=== PATIENT | female | born 1940 | race Caucasian/White ===

== ENCOUNTER → 2016-08-07 | Outpatient (CLI) | payer MEDICARE ==
[~2016-08-07] MED LIST: /WARF25TA OR; ACET500C; ACET65TA OR; ARTISOL10; ASPI81TA83 OR; CALCCHW12; CEPACOL; CHLO5CA; CIPR250T3; COLA100C2; GLUC500T PO; IBUP600T; KLOR10TA PO; LASI40TA PO; MULTIVIT; NEUR100C; NEUR100C OR; OSTEO BIFLEX; PERC5TAB8 OR; TOPR50TA; TRAM100T; TRAM50TA2; VITAMIN D PO; VITAMIN D50000 UNT
[2016-08-07 11:04] LABS: BASO % 0.7 % (0.0-1.0); EOS # 0.1 K/mm3 (0.0-0.50); EOS % 1.8 % (0.0-3.0); MEAN CORPUSCULAR HEMOGLOBIN 32.5 pg (27.0-33.0); MEAN CORPUSCULAR HGB CONC 34.3 g/dl (32.0-36.5); MEAN CORPUSCULAR VOLUME 94.8 fl (80.0-96.0); MONO # 0.4 K/mm3 (0.0-0.8); MONO % 5.9 % (0.0-5.0); NEUTROPHILS % 72.9 % (36.0-66.0); WHITE BLOOD COUNT 6.9 K/mm3 (4.0-10.0)
[2016-08-07 12:12] LABS: ANION GAP 11 MEQ/L (8-16); BLOOD UREA NITROGEN 17 MG/DL (7-18); CALCIUM LEVEL 9.4 MG/DL (8.8-10.2); CARBON DIOXIDE LEVEL 25 MEQ/L (21-32); CHLORIDE LEVEL 103 MEQ/L (98-107); CREATININE FOR GFR 0.87 MG/DL (0.55-1.02); GLOMERULAR FILTRATION RATE > 60.0 (>39); GLUCOSE, FASTING 142 MG/DL (83-110); POTASSIUM SERUM 4.3 MEQ/L (3.5-5.1); SODIUM LEVEL 139 MEQ/L (136-145)
== END ==
LOC: M LAB 10:33
PROVIDERS: ATTEND Family Medicine
DX: F41.9 Anxiety disorder, unspecified (principal); G89.4 Chronic pain syndrome; M48.06 Spinal stenosis, lumbar region; Z79.899 Other long term (current) drug therapy

== ENCOUNTER → 2017-09-04 | Outpatient (CLI) | payer MEDICARE ==
[2017-09-04 11:45] LABS: BASO # 0.1 10^3/uL (0.0-0.2); BASO % 0.9 % (0.0-1.0); EOS # 0.2 10^3/uL (0.0-0.50); EOS % 2.2 % (0.0-3.0); HEMATOCRIT 42.1 % (36.0-47.0); HEMOGLOBIN 14.1 g/dl (12.0-16.0); IMMATURE GRANULOCYTE % 0.4 % (0-3.0); LYMPH # 1.6 10^3/uL (1.5-4.5); LYMPH % 19.4 % (24.0-44.0); MEAN CORPUSCULAR HEMOGLOBIN 32.2 pg (27.0-33.0); MEAN CORPUSCULAR HGB CONC 33.5 g/dl (32.0-36.5); MEAN CORPUSCULAR VOLUME 96.1 fl (80.0-96.0); MONO # 0.7 10^3/uL (0.0-0.8); MONO % 8.7 % (0.0-5.0); NEUTROPHILS # 5.5 10^3/uL (1.8-7.7); NEUTROPHILS % 68.4 % (36.0-66.0); PLATELET COUNT, AUTOMATED 200 10^3/uL (150-450); RED BLOOD COUNT 4.38 10^6/uL (4.00-5.40); RED CELL DISTRIBUTION WIDTH 13.8 % (11.5-14.5)
[2017-09-04 12:06] LABS: ESTIMATED AVERAGE GLUCOSE 131 MG/DL (60-110); HEMOGLOBIN A1c 6.2 %
[2017-09-04 12:18] LABS: ANION GAP 8 MEQ/L (8-16); BLOOD UREA NITROGEN 19 MG/DL (7-18); CALCIUM LEVEL 9.5 MG/DL (8.8-10.2); CARBON DIOXIDE LEVEL 28 MEQ/L (21-32); CHLORIDE LEVEL 105 MEQ/L (98-107); CREATININE FOR GFR 0.85 MG/DL (0.55-1.30); GLOMERULAR FILTRATION RATE > 60.0 (>39); GLUCOSE, FASTING 107 MG/DL (70-100); POTASSIUM SERUM 4.5 MEQ/L (3.5-5.1); SODIUM LEVEL 141 MEQ/L (136-145)
== END ==
LOC: M LAB 10:46
DX: G89.4 Chronic pain syndrome (principal); F41.9 Anxiety disorder, unspecified; G47.00 Insomnia, unspecified; R53.81 Other malaise; M48.061 Spinal stenosis, lumbar region without neurogenic claudication
CPT/HCPCS: 84443

== ENCOUNTER → 2018-01-22 | Outpatient (CLI) | payer MEDICARE ==
[2018-01-22 11:38] LABS: APPEARANCE, URINE CLEAR (CLEAR); BACTERIA, URINE AUTO 2+ (NEGATIVE); BILIRUBIN, URINE AUTO NEGATIVE (NEGATIVE); BLOOD, URINE BLOOD NEGATIVE (NEGATIVE); COLOR, URINE COLORLESS (YELLOW); GLUCOSE, URINE (UA) AUTO NEGATIVE (NEGATIVE); KETONE, URINE AUTO NEGATIVE (NEGATIVE); LEUKOCYTE ESTERASE, URINE AUTO NEGATIVE (NEGATIVE); NITRITE, URINE AUTO NEGATIVE (NEGATIVE); PROTEIN, URINE AUTO NEGATIVE (NEGATIVE); RBC, URINE AUTO 1 /HPF (0-3); SPECIFIC GRAVITY URINE AUTO 1.004 (1.002-1.035); SQUAMOUS EPITHELIAL CELL UR AU 0 /HPF (0-6); UROBILINOGEN, URINE AUTO 0.2 mg/dL (0.0-2.0); WBC, URINE AUTO 3 /HPF (0-3)
[2018-01-22 11:52] LABS: BASO # 0.1 10^3/uL (0.0-0.2); BASO % 0.7 % (0.0-1.0); EOS # 0.2 10^3/uL (0.0-0.50); EOS % 2.4 % (0.0-3.0); HEMATOCRIT 40.8 % (36.0-47.0); HEMOGLOBIN 13.5 g/dl (12.0-15.5); IMMATURE GRANULOCYTE # 0.1 10^3/uL (0-0); IMMATURE GRANULOCYTE % 0.8 % (0-3.0); LYMPH # 1.1 10^3/uL (1.5-4.5); LYMPH % 15.8 % (24.0-44.0); MEAN CORPUSCULAR HEMOGLOBIN 32.1 pg (27.0-33.0); MEAN CORPUSCULAR HGB CONC 33.1 g/dl (32.0-36.5); MEAN CORPUSCULAR VOLUME 96.9 fl (80.0-96.0); MONO # 0.6 10^3/uL (0.0-0.8); MONO % 7.9 % (0.0-5.0); NEUTROPHILS # 5.2 10^3/uL (1.8-7.7); NEUTROPHILS % 72.4 % (36.0-66.0); PLATELET COUNT, AUTOMATED 243 10^3/uL (150-450); RED BLOOD COUNT 4.21 10^6/uL (4.00-5.40); RED CELL DISTRIBUTION WIDTH 13.5 % (11.5-14.5); WHITE BLOOD COUNT 7.2 10^3/uL (4.0-10.0)
[2018-01-22 12:21] LABS: CREATININE, URINE < 13.0 MG/DL; MALB URINE SIEMENS < 5.0 MG/L
[2018-01-22 12:24] LABS: ALBUMIN/GLOBULIN RATIO 1.05 (1.00-1.93); ALKALINE PHOSPHATASE 74 U/L (45-117); ALT/SGPT 27 U/L (12-78); ANION GAP 8 MEQ/L (8-16); AST/SGOT 18 U/L (7-37); BILIRUBIN,TOTAL 0.4 MG/DL (0.2-1.0); BLOOD UREA NITROGEN 21 MG/DL (7-18); CALCIUM LEVEL 9.8 MG/DL (8.8-10.2); CARBON DIOXIDE LEVEL 28 MEQ/L (21-32); CHLORIDE LEVEL 105 MEQ/L (98-107); CHOLESTEROL LEVEL 258 MG/DL (<200); CHOLESTEROL RISK RATIO 5.375 (<5); GLOMERULAR FILTRATION RATE > 60.0 (>39); GLUCOSE, FASTING 120 MG/DL (70-100); HDL CHOLESTEROL 48 MG/DL (>40); NON-HDL-C 210 MG/DL; POTASSIUM SERUM 4.4 MEQ/L (3.5-5.1); SODIUM LEVEL 141 MEQ/L (136-145); TOTAL PROTEIN 7.8 GM/DL (6.4-8.2); TRIGLYCERIDES LEVEL 285 MG/DL (<150)
== END ==
LOC: M LAB 11:02
DX: F41.9 Anxiety disorder, unspecified (principal); M48.061 Spinal stenosis, lumbar region without neurogenic claudication; E11.9 Type 2 diabetes mellitus without complications; N18.2 Chronic kidney disease, stage 2 (mild); Z79.899 Other long term (current) drug therapy
CPT/HCPCS: 84443

== ENCOUNTER 2018-11-11 03:39 | Emergency (ER) | payer MEDICARE ==
[~2018-11-11] VITALS: Ht 157.5 cm; Wt 96.4 kg
[~2018-11-11 03:39] MED LIST changes: -/WARF25TA OR; +COUM1TAB18 OR; +METO-743; -TOPR50TA
[2018-11-11 03:46] VITALS: BP 179/81
[2018-11-11] MEDS ORDERED: LISI-1046 PO (04:07)
[2018-11-11] MEDS ORDERED: FOLGTAB5 PO (04:07)
[2018-11-11] MEDS ORDERED: OSTETAB2 PO (04:07)
[2018-11-11] MEDS ORDERED: DULO1CAP PO (04:07)
[2018-11-11] MEDS ORDERED: CALC-190 PO (04:07)
[2018-11-11] MEDS ORDERED: METAL LOCK LOOP XX ONE (04:14)
== END 2018-11-11 04:27 | disposition home or self-care (01) ==
LOC: M ED 03:39 → EDBD 03:39 → M ED 04:27
DX: Z04.3 Encounter for examination and observation following other accident (principal); W01.0XXA Fall on same level from slipping, tripping and stumbling without subsequent striking against object, initial encounter; Y92.013 Bedroom of single-family (private) house as the place of occurrence of the external cause; Y93.89 Activity, other specified; Y99.8 Other external cause status; I10 Essential (primary) hypertension; E11.9 Type 2 diabetes mellitus without complications; Z79.899 Other long term (current) drug therapy

== ENCOUNTER 2018-11-16 06:26 | Inpatient (IN) | payer MEDICARE ==
[~2018-11-16] VITALS: Ht 157.5 cm; Wt 96.4 kg
[~2018-11-16 06:26] MED LIST changes: +CALC-190 PO; +DULO1CAP PO; +FOLGTAB5 PO; +LISI-1046 PO; +OSTETAB2 PO
[2018-11-16] MEDS ORDERED: OSTEO BIFLEX PO SCH (09:00)
--- NOTE | 2018-11-16 09:38 | REP ---
MRI LUMBAR SPINE: TECHNIQUE: Multiple sequences obtained in the sagittal and axial planes. Comparison made with prior study 10/19/2017 at [facility]. There is no compression fracture. There is slight anterior listhesis of L3 on L4 and L4 on L5, with slight retrolisthesis of L5 on S1. These findings are stable. There is diffuse loss of water signal and disc degeneration with mild disc space narrowing at all levels. There is a more moderate degree of disc space narrowing at L5-S1. All of these findings are stable. The conus is unremarkable. At L1-2 there is mild diffuse disc bulging with hypertrophy of ligamentum flavum and articulating facets. There is minimal central canal stenosis. There is no neural foraminal narrowing. There is disc bulging at L2-3 with hypertrophy of the ligamentum flavum and posterior facets. There is severe spinal stenosis at this level. There is no neural foraminal narrowing. At L3-4 disc bulging is present with hypertrophy of ligamentum flavum and posterior facets. There is moderate spinal stenosis. There is no neural foraminal narrowing. At L4-5 there is diffuse disc bulging with a small right paracentral disc protrusion unchanged. There is hypertrophy of ligamentum flavum and posterior facets. There is mild spinal stenosis. There does appear to be neural foraminal narrowing at this level. At L5-S1 there is mild diffuse disc bulging with hypertrophy of the ligamentum flava in the posterior facets. There is very mild compression of the thecal sac. There is no neural foraminal narrowing. IMPRESSION: Multilevel disc bulging and hypertrophic change of ligamentum flavum and posterior facets. Severe spinal stenosis at L2-3 is unchanged. There is moderate spinal stenosis at L3-4. No acute findings. Electronically Signed by Kishan Harmon MD 11/16/2018 03:10 P
[2018-11-16 10:50] LABS: BASO # 0.1 10^3/uL (0.0-0.2); BASO % 1.1 % (0.0-1.0); EOS # 1.2 10^3/uL (0.0-0.50); EOS % 12.9 % (0.0-3.0); HEMATOCRIT 40.6 % (36.0-47.0); HEMOGLOBIN 13.5 g/dl (12.0-15.5); LYMPH # 1.1 10^3/uL (1.5-4.5); LYMPH % 12.7 % (24.0-44.0); MEAN CORPUSCULAR HEMOGLOBIN 32.4 pg (27.0-33.0); MEAN CORPUSCULAR HGB CONC 33.3 g/dl (32.0-36.5); MEAN CORPUSCULAR VOLUME 97.4 fl (80.0-96.0); MONO # 0.9 10^3/uL (0.0-0.8); NEUTROPHILS # 5.6 10^3/uL (1.8-7.7); PLATELET COUNT, AUTOMATED 215 10^3/uL (150-450); RED BLOOD COUNT 4.17 10^6/uL (4.00-5.40); WHITE BLOOD COUNT 8.9 10^3/uL (4.0-10.0)
[2018-11-16 11:07] LABS: BLOOD UREA NITROGEN 19 MG/DL (7-18); CALCIUM LEVEL 9.3 MG/DL (8.8-10.2); CARBON DIOXIDE LEVEL 29 MEQ/L (21-32); CHLORIDE LEVEL 108 MEQ/L (98-107); CREATININE FOR GFR 0.71 MG/DL (0.55-1.30); GLOMERULAR FILTRATION RATE > 60.0 (>39); GLUCOSE, FASTING 110 MG/DL (70-100); SODIUM LEVEL 140 MEQ/L (136-145)
[2018-11-16] MEDS ORDERED: GLUCOSE 4 GM CHEW TABLET PO PRN (14:00)
[2018-11-16] MEDS ORDERED: DEXTROSE 50% 50 ML SYRINGE IV PRN (14:00)
[2018-11-16] MEDS ORDERED: GLUCAGON FOR INJ 1 MG VIAL (J1610) SC PRN (14:00)
[2018-11-16] MEDS ORDERED: ASPIRIN 325 MG TAB PO ONE (14:00)
[2018-11-16] MEDS ORDERED: METOPROLOL SUCC (TopROL XL) 50MG **XL** TAB PO ONE (14:00)
[2018-11-16] MEDS ORDERED: ACETAMINOPHEN TAB 650MG DOSE (2X325MG) PO PRN (14:00)
[2018-11-16] MEDS ORDERED: MORPHINE 4 MG/ML 1ML VIAL/SYRINGE (J2270) IV PRN (14:15)
[2018-11-16] MEDS ORDERED: ONDANSETRON 4MG/2ML VIAL (J2405) IV PRN (14:15)
--- NOTE | 2018-11-16 14:34 | HPEPDOC ---
[facility] Medical History & Physical Date of Admission November 16, 2018 Attending Physician: AUBRIE GARCÍA MD History and Physical CHIEF COMPLAINT: Right leg weakness HISTORY OF PRESENT ILLNESS: Patient is a 78-year-old white female with past medical history of spinal stenosis with neuropathy, right hip pain, hyperlipidemia, OA, NIDD, osteoporosis, GERD and depression who presents to the emergency department via EMS after waking this morning at 0400 unable to move her right leg. Patient's weakness persisted upon presentation. She denied any bowel or bladder incontinence did not demonstrate any left-sided weakness. In the emergency department, an MRI of the patient's lumbosacral spine was ordered and indicated severe spinal stenosis. A CBC and CMP were performed and did not demonstrated any serious abnormalities. Both orthopedics and hospitalist team were consulted for further evaluation and management. Of historical note, patient originally presented to the emergency department on 11/11/18 after a fall onto her home hospital bed from standing height. At that time, patient denied any trauma and was unable to identify the mechanism of her fall, although she maintains she never lost consciousness. Patient was discharged home with primary follow-up. PAST MEDICAL HISTORY: -Spinal stenosis with neuropathy -Chronic right hip pain -Hyperlipidemia -Hypertension -Gastroesophageal reflux disease -Generalized arthritis -Osteoporosis -Xeb-[id number] diabetes mellitus -Depression -Overactive bladder -Hypokalemia PAST SURGICAL HISTORY: -Total left knee replacement, 2011 -Spinal canal surgery, 2009 -Total left hip replacement, 2002 -Appendectomy -Left knee arthroscopy -Right heel spur excision -D&C 3 -Hysterectomy -Breast biopsy SOCIAL HISTORY: Marital status: to Lauro Padron , 59 years Children: Son, Aditya Padron Resides in: Alone home with Tobacco use: Patient denies tobacco/nicotine abuse ETOH: Patient denies alcohol use Illicit drug use: Patient denies illicit drug use IV drug use: Denies IV drug use Other relevant social factors: Patient utilizes bifocal glasses and a walker to ambulate at home FAMILY HISTORY: Family history of breast cancer Noncontributory given patient's advanced age ALLERGIES: Penicillin allergy Please see below REVIEW OF SYSTEMS: CONSTITUTIONAL: Denies recent fevers, chills, night sweats, changes in weight. HEENT: Denies headaches, changes in vision, ear pain, difficulty swallowing CARDIOVASCULAR: Denies chest pain/pressure, palpitations, inappropriately elevated heart rate RESPIRATORY: Reports exertional dyspnea, no difficulty breathing or SOB with A DLs. No recent cough or wheeze. GASTROINTESTINAL: Denies n/v, abdominal pain, bowel incontinence or difficulty stooling. GENITOURINARY: Reports nocturia every 3-4 hours, denies urinary incontinence, no dysuria SKIN: Denies rashes or new/evolving skin lesions. MUSCULOSKELETAL: Reports R-leg weakness that began suddenly at 0400 this morning. Chronic R hip pain, chronic R knee pain. Denies UE joint pain or discomfort. NEUROLOGICAL: R-leg weakness, chronic neuropathic pain relating to spinal sue nosis. PSYCHIATRIC: Reports history of anxiety/depression HEMATOLOGIC/LYMPHATIC: denies history of easy bruising/bleeding. HOME MEDICATIONS: -Aspirin 81 mg daily -Calcium supplementation -Librium 5 mg by mouth twice a day -Vitamin D supplementation -Duloxetine 20 mg by mouth daily -Furosemide 20 mg by mouth every morning -Gabapentin 100 mg by mouth twice a day -Osteo Bi-Flex tablet by mouth daily -Lisinopril 2.5 mg by mouth every afternoon -Metformin 250 mg by mouth twice a day -Myrbetriq 25 mg by mouth daily at bedtime -Metoprolol succinate 12.5 mg by mouth daily -Multivitamin 1 tab by mouth daily -Potassium chloride 10 mEq by mouth daily PHYSICAL EXAMINATION: VITAL SIGNS: Temperature 98.6F oral, pulse 82 BPM, respiratory rate 16, blood pressure 132/62 (85), pulse oximetry 97 % on room air. GENERAL APPEARANCE: Alert, oriented, sitting upright in bed dressed in hospital gown. Appearing stated age and in no acute distress. HEENT: Normocephalic, atraumatic, EOMI, PERRLA, sclera nonicteric, membranes moist CARDIOVASCULAR: Regular rate and rhythm, normal S1 and S2 no murmurs appreciated LUNGS: Clear to auscultation bilaterally, free of adventitious breath sounds, even and unlabored breathing ABDOMEN: obese, soft, nontender, protuberant, bowel sounds throughout MUSCULOSKELETAL: Right hip is nontender. No tenderness overlying right trochanter. Right hip active range of motion limited in flexion and extension due to weakness. Passive range of motion limited in flexion, external rotation and abduction secondary to pain. Overlying dermatomes are intact bilaterally. No difficulty with right knee or right ankle range of motion. Distal pulses 2+ bilaterally. No calf tenderness bilaterally, no lower extremity edema. NEUROLOGICAL: Right hip flexion 1/5 strength, PSYCHIATRIC: Mood and affect are appropriate LABORATORY DATA: See below. IMAGING: Lumbar spine MRI (11/16/18): Multilevel disc bulging and hypertrophic change of ligamentum flavum and posterior facets. Severe spinal stenosis at L2-L3 is unchanged. There is moderate spinal stenosis at L3-4. No acute findings. Right Knee x-ray (11/16/18): Pending radiology read, severe arthritis evident Right hip x-ray (11/16/18): Pending radiology read, severe arthritis evident ASSESSMENT: Patient is a 78-year-old white female with past medical history of severe spinal stenosis with neuropathy, right hip pain, hyperlipidemia, OA, NIDD, osteoporosis, GERD and depression who presented to the emergency department via EMS after waking the morning of 11/16/18 at 0400 unable to move her right leg. Imaging studies revealed the patient to have sever spinal stenosis. Hospitalist team, in addition to orthopedics, were consulted for admission and further evaluation and management. PLAN: Right leg weakness likely 2/2 to spinal stenosis -Likely secondary to patient's ongoing severe spinal stenosis, denies bowel or bladder incontinence -No evidence of myelopathy -Orthopedics was consulted and does not feel surgical management required at this time. We appreciate their continued assistance in the management of Mrs. Padron. -B12 and folate pending to rule out alternate neuropathic causes of weakness -Continue home medications for neuropathy: gabapentin and duloxetine -ARU screen, pending admission -PT/OT evaluation for inability to ambulate -Plan to consult pain management on 11/18/18, with potential for further intervention with steroid injections or epidural. Patient's home aspirin dose held in the event the aforementioned procedures are required. Right Hip Pain -Right hip x-ray demonstrates severe osteoarthritis -IV morphine 2 mg every 4 hours when necessary -By mouth Tylenol 650 mg every 4 hours when necessary -Orthopedics consulted and we appreciate their assistance in management of this patient Diabetes Mellitus, non-insulin dependent -Sliding scale insulin -Consistent carb diet -A1c pending Hypertension -Continue home metoprolol, furosemide, lisinopril Hyperlipidemia -Cardiac risk profile pending Hypokalemia -Continue home supplementation Hypovitaminosis D -Continue home supplementation DVT Prophylaxis: Lovenox 40 mg Vital Signs Vital Signs Date Time Temp Pulse Resp B/P (MAP) Pulse Ox O2 Delivery O2 Flow Rate FiO2 11/16/18 06:35 97.9 87 16 153/71 (98) 97 Room Air Laboratory Data Labs 24H Laboratory Tests 2 11/16/18 10:14: Immature Granulocyte % (Auto) 0.3, White Blood Count 8.9, Red Blood Count 4.17, Hemoglobin 13.5, Hematocrit 40.6, Mean Corpuscular Volume 97.4H, Mean Corpuscular Hemoglobin 32.4, Mean Corpuscular Hemoglobin Concent 33.3, Red Cell Distribution Width 14.1, Platelet Count 215, Neutrophils (%) (Auto) 63.0, Lymphocytes (%) (Auto) 12.7L, Monocytes (%) (Auto) 10.0H, Eosinophils (%) (Auto) 12.9H, Basophils (%) (Auto) 1.1H, Neutrophils # (Auto) 5.6, Lymphocytes # (Auto) 1.1L, Monocytes # (Auto) 0.9H, Eosinophils # (Auto) 1.2H, Basophils # (Auto) 0.1, Nucleated Red Blood Cells % (auto) 0.0, Anion Gap 3L, Glomerular Filtration Rate > 60.0, Blood Urea Nitrogen 19H, Creatinine 0.71, Sodium Level 140, Potassium Level 4.0, Chloride Level 108H, Carbon Dioxide Level 29, Calcium Level 9.3 CBC/BMP Laboratory Tests 11/16/18 10:14 Red Blood Count 4.17, Mean Corpuscular Volume 97.4 H, Mean Corpuscular Hemoglobin 32.4, Mean Corpuscular Hemoglobin Concent 33.3, Red Cell Distribution Width 14.1, Neutrophils (%) (Auto) 63.0, Lymphocytes (%) (Auto) 12.7 L, Monocy chelsie (%) (Auto) 10.0 H, Eosinophils (%) (Auto) 12.9 H, Basophils (%) (Auto) 1.1 H, Neutrophils # (Auto) 5.6, Lymphocytes # (Auto) 1.1 L, Monocytes # (Auto) 0.9 H, Eosinophils # (Auto) 1.2 H, Basophils # (Auto) 0.1, Calcium Level 9.3 Home Medications Scheduled Aspirin (Aspir 81) 81 Mg Tablet.dr, 81 MG PO DAILY Calcium Carbonate/Vitamin D3 (Calcium 600-Vit D3 400 Tablet) 1 Each Tablet, 1 TAB PO DAILY Chlordiazepoxide (Chlordiazepoxide HCl) 5 Mg Capsule, 5 MG PO DAILY Cholecalciferol (Vitamin D3) (Vitamin D3) 1,000 Unit Tablet, 1,000 UNIT PO DAILY Duloxetine Hcl (Duloxetine HCl) 20 Mg Capsule.dr, 20 MG PO DAILY Furosemide (Furosemide) 20 Mg Tablet, 20 MG PO QAM Gabapentin (Gabapentin) 100 Mg Capsule, 100 MG PO BID TAKES AT 1500/2300 Glucosamine/D3/Boswellia Renita (Osteo Bi-Flex Tablet) 1 Each Tablet, 1 EACH PO DAILY Lisinopril (Lisinopril) 2.5 Mg Tablet, 2.5 MG PO QPM Metformin HCl (Metformin HCl) 500 Mg Tablet, 250 MG PO BID Metoprolol Succinate (Metoprolol Succinate) 25 Mg Tab.er.24h, 12.5 MG PO DAILY Mirabegron (Myrbetriq) 25 Mg Tab.er.24h, 25 MG PO QHS Multivit-Min/FA/Lycopen/Lutein (Centrum Silver Tablet) 1 Each Tablet, 1 TAB PO DAILY Potassium Chloride (Potassium Chloride) 10 Meq Tab.er.prt, 10 MEQ PO DAILY Scheduled PRN Chlordiazepoxide (Chlordiazepoxide HCl) 5 Mg Capsule, 5 MG PO BID PRN for ANXIETY Allergies Coded Allergies: Penicillins (Verified Allergy, Unknown, ALLERGY A CHILD, UNKOWN REACTION, 11/16/18) A-FIB/CHADSVASC A-FIB History Current/History of A-Fib/PAF?: No GME ATTESTATION GME ATTESTATION My faculty preceptor for this patient encounter was physically present during t he encounter and was fully available. All aspects of the patient interview, examination, medical decision making process, and medical care plan development were reviewed and approved by the faculty preceptor. The faculty preceptor is aware and concurs with the plan as stated in the body of this note and will attest to such by his/her cosignature. ALKA WALKER DO November 16, 2018 14:34
[2018-11-16] MEDS ORDERED: POTA10TA17 PO (14:53)
[2018-11-16] MEDS ORDERED: METO1TAB32 PO (14:53)
[2018-11-16] MEDS ORDERED: GLUC1TAB58 PO (14:53)
[2018-11-16] MEDS ORDERED: D31000TA PO (14:53)
[2018-11-16] MEDS ORDERED: ASPI81TA85 PO (14:53)
[2018-11-16] MEDS ORDERED: CENT1TAB PO (14:53)
[2018-11-16] MEDS ORDERED: FURO20TA2 PO (14:53)
[2018-11-16] MEDS ORDERED: CALC1TAB63 PO (14:53)
[2018-11-16] MEDS ORDERED: MYRB25TA PO (14:53)
[2018-11-16] MEDS ORDERED: LISI-1046 PO (14:53)
[2018-11-16] MEDS ORDERED: DULO1CAP PO (14:53)
[2018-11-16] MEDS ORDERED: GABA-1171 PO (14:53)
[2018-11-16] MEDS ORDERED: CHLOR5CA PO ×2 (14:53→14:54)
[2018-11-16] MEDS ORDERED: METF500T13 PO (14:53)
[2018-11-16] MEDS ORDERED: GABAPENTIN 100 MG CAP PO SCH (16:00)
[2018-11-16] MEDS: GABAPENTIN 100 MG CAP PO SCH ×2 (17:19→22:14)
[2018-11-16] MEDS: MULTIVITAMINS/MINERALS THERAP 1 TAB PO SCH (17:19)
[2018-11-16] MEDS: VITAMIN D 1,000 INTERNATIONAL UNITS TABLET PO SCH (17:19)
[2018-11-16] MEDS: POTASSIUM CHLORIDE 10 MEQ SR TABLET PO SCH (17:19)
[2018-11-16] MEDS: ENOXAPARIN 40 MG/0.4 ML SYRINGE (J1650) SC SCH (17:19)
[2018-11-16] MEDS: FUROSEMIDE 20 MG TAB PO SCH (17:20)
[2018-11-16] MEDS: CALCIUM/VITAMIN D 500 MG TAB PO SCH (17:20)
[2018-11-16] MEDS: DULoxetine 20 MG CAP (CYMBALTA) PO SCH (17:21)
[2018-11-16] MEDS: METOPROLOL SUCC *XL* 12.5MG PER 1/2 TAB (TopROL *XL*) PO SCH (17:21)
[2018-11-16] MEDS: HumaLOG INSULIN (NovoLOG) PER UNIT SC SCH ×2 (17:30→21:21)
[2018-11-16 17:54] VITALS: BP 133/63
[2018-11-16 20:00] VITALS: BP 159/70
[2018-11-16] MEDS ORDERED: POTASSIUM CHLORIDE 10 MEQ SR TABLET PO SCH (21:00)
[2018-11-16] MEDS: MYRBETRIQ 25 MG PO SCH (21:21)
[2018-11-16] MEDS: LISINOPRIL *2.5 MG* TAB PO SCH (21:21)
[2018-11-17 04:00] VITALS: BP 147/70
--- NOTE | 2018-11-17 06:37 | REP ---
RIGHT HIP, TWO VIEWS: Two views of the right hip are performed. There is severe joint space narrowing with erosive change diffusely of the acetabulum, and deepening of the acetabulum. There is extensive subchondral sclerosis and cystic change on both sides of the joint. There is moderate spurring at the margins of the joint. There is mild sclerosis at the pubic symphysis. IMPRESSION: Severe arthritic changes. Electronically Signed by Kishan Harmon MD 11/17/2018 11:24 A
--- NOTE | 2018-11-17 06:42 | REP ---
RIGHT KNEE, TWO VIEWS: AP and lateral views of the right knee are performed. There is no acute fracture or dislocation. There is moderate medial joint space narrowing with subchondral sclerosis. There is moderate diffuse spurring. There may be a small joint effusion. Vascular calcifications are seen posteriorly. IMPRESSION: Moderate degenerative changes. Electronically Signed by Kishan Harmon MD 11/17/2018 11:27 A
[2018-11-17] MEDS: HumaLOG INSULIN (NovoLOG) PER UNIT SC SCH ×4 (07:30→21:00)
[2018-11-17 08:14] LABS: HEMATOCRIT 40.5 % (36.0-47.0); HEMOGLOBIN 13.5 g/dl (12.0-15.5); MEAN CORPUSCULAR HEMOGLOBIN 32.8 pg (27.0-33.0); MEAN CORPUSCULAR HGB CONC 33.3 g/dl (32.0-36.5); MEAN CORPUSCULAR VOLUME 98.5 fl (80.0-96.0); PLATELET COUNT, AUTOMATED 186 10^3/uL (150-450); RED BLOOD COUNT 4.11 10^6/uL (4.00-5.40); WHITE BLOOD COUNT 8.3 10^3/uL (4.0-10.0)
[2018-11-17 08:49] LABS: BLOOD UREA NITROGEN 17 MG/DL (7-18); CALCIUM LEVEL 9.3 MG/DL (8.8-10.2); CARBON DIOXIDE LEVEL 28 MEQ/L (21-32); CHLORIDE LEVEL 105 MEQ/L (98-107); CHOLESTEROL LEVEL 240 MG/DL (<200); CHOLESTEROL RISK RATIO 5.333 (<5); CREATININE FOR GFR 0.76 MG/DL (0.55-1.30); GLOMERULAR FILTRATION RATE > 60.0 (>39); GLUCOSE, FASTING 106 MG/DL (70-100); HDL CHOLESTEROL 45 MG/DL (>40); LDL CHOLESTEROL 144 MG/DL (<100); MAGNESIUM LEVEL 1.9 MG/DL (1.8-2.4); NON-HDL-C 195 MG/DL; POTASSIUM SERUM 3.9 MEQ/L (3.5-5.1); SODIUM LEVEL 139 MEQ/L (136-145); TRIGLYCERIDES LEVEL 257 MG/DL (<150)
[2018-11-17] MEDS ORDERED: FUROSEMIDE 40 MG TAB PO SCH (09:00)
[2018-11-17] MEDS ORDERED: METOPROLOL SUCC (TopROL XL) 50MG **XL** TAB PO SCH (09:00)
[2018-11-17] MEDS ORDERED: MULTIVITAMINS/MINERALS THERAP 1 TAB PO SCH (09:00)
[2018-11-17] MEDS ORDERED: NON-FORMULARY 1 EA EA PO SCH ×3 (09:00)
[2018-11-17] MEDS: CHLORDIAZEPOXIDE 5 MG PO SCH ×2 (09:14→09:39)
[2018-11-17] MEDS: ENOXAPARIN 40 MG/0.4 ML SYRINGE (J1650) SC SCH (09:14)
[2018-11-17] MEDS: CALCIUM/VITAMIN D 500 MG TAB PO SCH (09:15)
[2018-11-17] MEDS: DULoxetine 20 MG CAP (CYMBALTA) PO SCH (09:15)
[2018-11-17] MEDS: METOPROLOL SUCC *XL* 12.5MG PER 1/2 TAB (TopROL *XL*) PO SCH (09:15)
[2018-11-17] MEDS: FUROSEMIDE 20 MG TAB PO SCH (09:15)
[2018-11-17] MEDS: VITAMIN D 1,000 INTERNATIONAL UNITS TABLET PO SCH (09:15)
[2018-11-17] MEDS: MULTIVITAMINS/MINERALS THERAP 1 TAB PO SCH (09:15)
[2018-11-17] MEDS: POTASSIUM CHLORIDE 10 MEQ SR TABLET PO SCH (09:16)
--- NOTE | 2018-11-17 10:32 | IPNPDOC ---
Date Seen The patient was seen on 11/17/18. Progress Note SUBJECTIVE: Pt is worried about the financial consequences of acute rehab. "I have my to help me at home. I just want to go home once the pain is better. We don't have that kind of money, and I don't want to lose my house." Pt was reassured that PFS has been consulted , and that the patient will have the final decision on disposition when medically stable. she continues to complain of right hip pain and radicular shooting pain in the right LE. no urinary retention. still with significant weakness in b/l LE. Yesterday, pt was evaluated by ortho, Dr. Matos, and after consultation with spine surgeon Dr. Mckeon, recommended pt to be seen by pain management and activity as tolerated. no acute surgical intervention was warranted, and clinically pt was stable to stay at [facility] as there was no signs of myelopathy on examination. PHYSICAL EXAMINATION: VITAL SIGNS: PLS SEE BELOW GENERAL APPEARANCE: Alert, oriented, sitting upright in bed dressed in hospital gown. Appearing stated age and in no acute distress. no use of accessory respiratory muscles HEENT: Normocephalic, atraumatic, EOMI, PERRLA, sclera nonicteric, membranes moist. no jaundice. no JVD CARDIOVASCULAR: Regular rate and rhythm, normal S1 and S2 no murmurs appreciated LUNGS: Clear to auscultation bilaterally,no wheezing, rales or rhonchi ABDOMEN: obese, soft, nontender, protuberant, bowel sounds x4 quadrants EXTREMITIES:limited exam in the right hip due to severe pain. SLR test b/l LE could not be performed due to patient's pain. motor fxn bl UE 11/17. diminished sensation in the right LE LABORATORY DATA, MICROBIOLOGY, IMAGING STUDIES: Pls See below. IMAGING: Lumbar spine MRI (11/16/18): Multilevel disc bulging and hypertrophic change of ligamentum flavum and posterior facets. Severe spinal stenosis at L2-L3 is unchanged. There is moderate spinal stenosis at L3-4. No acute findings. Right Knee x-ray (11/16/18): Pending radiology read, severe arthritis evident Right hip x-ray (11/16/18): Pending radiology read, severe arthritis evident ASSESSMENT/PLAN: Patient is a 78-year-old white female with past medical history of spinal stenosis with neuropathy, right hip pain, hyperlipidemia, OA, NIDD, osteopor osis, GERD and depression who presents to the emergency department via EMS after waking this morning at 0400 unable to move her right leg. Patient's weakness persisted upon presentation. She denied any bowel or bladder incontinence did not demonstrate any left-sided weakness.In the emergency department, an MRI of the patient's lumbosacral spine was ordered and indicated severe spinal stenosis.Both orthopedics and hospitalist team were consulted for further evaluation and management. , patient originally presented to the emergency department on 11/11/18 after a fall onto her home hospital bed from standing height. At that time, patient denied any trauma and was unable to identify the mechanism of her fall, although she maintains she never lost consciousness. Patient was discharged home with primary follow-up. SEVERE spinal stenosis L2-L3, with right LE weakness/ lumbar radiculopathy -denies bowel or bladder incontinence -No evidence of myelopathy -Orthopedics was consulted and does not feel surgical management required at this time. -B12 and folate pending to rule out alternate neuropathic causes of weakness -Continue home medications for neuropathy: gabapentin and duloxetine -ARU screen, pending admission -PT/OT evaluation for inability to ambulate -Plan to consult pain management on 11/18/18, with potential for further intervention with steroid injections or epidural. aspirin held Right Hip severe osteoarthritis -Right hip x-ray demonstrates severe osteoarthritis -IV morphine 2 mg every 4 hours when necessary -By mouth Tylenol 650 mg every 4 hours when necessary -Orthopedics recommended activity as tolerated. Diabetes Mellitus, non-insulin dependent -Sliding scale insulin -Consistent carb diet -A1c pending Hypertension -Continue home metoprolol, furosemide, lisinopril Hyperlipidemia -Cardiac risk profile pending Hypokalemia -Continue home supplementation Hypovitaminosis D -Continue home supplementation DVT Prophylaxis: Lovenox 40 mg A-FIB/CHADSVASC A-FIB History Current/History of A-Fib/PAF?: No Current Oral Anticoagulant The: No VS, I&O, 24H, Fishbone Vital Signs/I&O Vital Signs Date Time Temp Pulse Resp B/P (MAP) Pulse Ox O2 Delivery O2 Flow Rate FiO2 11/17/18 04:00 97.3 76 18 147/70 (95) 97 11/16/18 14:50 Room Air I&O- Last 24 Hours up to 6 AM 11/17/18 06:00 Intake Total 420 ml Output Total 950 ml Balance -530 ml Laboratory Data 24H LABS Laboratory Tests 2 11/16/18 10:14: Immature Granulocyte % (Auto) 0.3, White Blood Count 8.9, Red Blood Count 4.17, Hemoglobin 13.5, Hematocrit 40.6, Mean Corpuscular Volume 97.4H, Mean Corpuscular Hemoglobin 32.4, Mean Corpuscular Hemoglobin Concent 33.3, Red Cell Distribution Width 14.1, Platelet Count 215, Neutrophils (%) (Auto) 63.0, Lymphocytes (%) (Auto) 12.7L, Monocytes (%) (Auto) 10.0H, Eosinophils (%) (Auto) 12.9H, Basophils (%) (Auto) 1.1H, Neutrophils # (Auto) 5.6, Lymphocytes # (Auto) 1.1L, Monocytes # (Auto) 0.9H, Eosinophils # (Auto) 1.2H, Basophils # (Auto) 0.1, Nucleated Red Blood Cells % (auto) 0.0, Anion Gap 3L, Glomerular Filtration Rate > 60.0, Blood Urea Nitrogen 19H, Creatinine 0.71, Sodium Level 140, Potassium Level 4.0, Chloride Level 108H, Carbon Dioxide Level 29, Calcium Level 9.3 11/16/18 18:47: Bedside Glucose (Misc Panel) 147H 11/16/18 20:57: Bedside Glucose (Misc Panel) 111H 11/17/18 02:08: Urine Color YELLOW, Urine Appearance CLEAR, Urine pH 5.0, Urine Specific [place] 1.009, Urine Protein NEGATIVE, Urine Glucose (UA) NEGATIVE, Urine Ketones NEGATIVE, Urine Blood NEGATIVE, Urine Nitrite NEGATIVE, Urine Bilirubin NEGATIVE, Urine Urobilinogen 0.2, Urine Leukocyte Esterase NEGATIVE, Urine WBC (Auto) 1, Urine RBC (Auto) 0, Urine Hyaline Casts (Auto) 0, Urine Bacteria (Auto) NEGATIVE, Urine Squamous Epithelial Cells 0, Urine Mucus (Auto) SMALL, Urine Sperm (Auto) CBC/BMP Laboratory Tests 11/16/18 10:14 Red Blood Count 4.17, Mean Corpuscular Volume 97.4 H, Mean Corpuscular Hemoglobin 32.4, Mean Corpuscular Hemoglobin Concent 33.3, Red Cell Distribution Width 14.1, Neutrophils (%) (Auto) 63.0, Lymphocytes (%) (Auto) 12.7 L, Monocytes (%) (Auto) 10.0 H, Eosinophils (%) (Auto) 12.9 H, Basophils (%) (Auto) 1.1 H, Neutrophils # (Auto) 5.6, Lymphocytes # (Auto) 1.1 L, Monocytes # (Auto) 0.9 H, Eosinophils # (Auto) 1.2 H, Basophils # (Auto) 0.1, Calcium Level 9.3 AUBRIE GARCÍA MD November 17, 2018 07:16
[2018-11-17 10:34] LABS: HEMOGLOBIN A1c 6.2 %
[2018-11-17 14:00] VITALS: BP 159/87
[2018-11-17 14:30] VITALS: BP 157/73
[2018-11-17] MEDS: GABAPENTIN 100 MG CAP PO SCH ×2 (15:30→23:30)
[2018-11-17] MEDS: LISINOPRIL *2.5 MG* TAB PO SCH (21:04)
[2018-11-17] MEDS: MYRBETRIQ 25 MG PO SCH (21:04)
--- NOTE | 2018-11-17 21:24 | HPE ---
DATE OF ADMISSION: 11/16/2018 CHIEF COMPLAINT: A 78-year-old female with right leg weakness HISTORY OF PRESENT ILLNESS: This 78-year-old female presented to emergency department at [facility]. She was assessed by the emergency room physician and consulted to myself as the orthopedic surgeon behavioral interventionist. Briefly, her history includes about nine years ago, she saw Dr. Mckeon, this the spine surgeon at [facility] ([facility] here in [place]. She apparently had multilevel decompression around L2, L3 and L4. She was having some leg symptoms at that point. She feels like she got back to normal; however, in the last 2-3 years, she is experiencing a slow decline in her ability to ambulate and motor function in her legs. She feels like over that time there has been some numbness in her feet as well. She evidently walks with a walker. She walks with "A senior shuffle," according to her. PAST MEDICAL HISTORY: 1. Hypertension. 2. Dyslipidemia. MEDICATIONS: She lives at totally unsure; however, her ambulatory medications state: - acetylsalicylic acid (ASA) 81 mg - calcium chlordiazepoxide 5 mg - duloxetine 20 mg by mouth once daily - Lasix 40 mg once daily - gabapentin 100 mg three times a day - glucosamine - lisinopril 2.5 mg by mouth once daily - metformin 500 mg by mouth twice a day - metoprolol 50 mg - multivitamin one tablet by mouth daily - potassium chloride - vitamin D3 - folic acid - vitamin D combination medication. ALLERGIES: Allergic reaction to PENICILLIN. SURGICAL HISTORY: 1. Left total hip 2002. 2. Lumbar spine decompression 2009, Dr. Mckeon. 3. Left total knee 2011. 4. Appendectomy. 5. Right breast biopsy. 6. Dilation and curettage (D C) times three. SOCIAL HISTORY: She lives at home with her . She is here today with him as well as her son. Denies alcohol, cigarette use or drug use. PHYSICAL EXAMINATION: VITAL SIGNS: Temperature 97.9, blood pressure 153/71, pulse rate 87, respiratory rate 16, 97% on room air. She is alert and oriented times three. Mood and affect pleasant and positive. Gait impossible to assess as she is unable to ambulate. She is laying supine in the bed. Inspection of her lumbar spine and lower extremities reveals no obvious overlying redness, swelling, ecchymosis or deformity. There is an anterior midline incision from the left toward mn that looks benign. Sensation in the lower extremities from L2-S1 appear normal, 2/2. Perianal sensation was less than normal. Normal rectal tone. Positive deep anal pressure. Lower extremity strength on the left side L2-S1 was 5/5. Right side hip flexor strength on 3/5. Hip flexion unable to do against gravity. Knee extension representing L3 was 4-/5. L4-S1 was 5/5. Reflexes in knees and ankles were unable to be elicited. Plantars were downgoing on both sides. No evidence of clonus in the lower extremities. Feet are warm and well perfused with good pedal pulses. Hip range of motion is stiff, zero to approximately 40 degrees of flexion before mechanical elisha appreciated. Imaging was performed, lumbar spine MRI. This is comparison to a prior study on 10/19/2017 at [facility] by the radiologist. There is slight anterolisthesis L3-L4 and L4-L5, a slight retrolisthesis at L5-S1 that are stable versus last MRI. The clonus is unremarkable. At L1-L2, there is mild diffuse disc bulging, minimal central canal stenosis and no neural foraminal narrowing. Disc bulge at L2-L3 at base, sliding more towards the right side with hypertrophy of the ligamentum flavum and posterior facets resulting in severe spinal stenosis at this level. No neural foraminal narrowing. At L3-4, diffuse disc bulge present with hypertrophy of ligamentum flavum and posterior facets resulting in moderate spinal stenosis with no neural foraminal narrowing. At L4-5, there is diffuse disc bulging with a small right paracentral disc protrusion unchanged. Mild to moderate stenosis. There does appear to be neural foraminal narrowing at this level. At L5-S1 there is mild diffuse disc bulging with hypertrophy of the ligamentum flavum in the posterior facets with mild compression of the thecal sac. There is no neural foraminal narrowing. ASSESSMENT AND PLAN: This 78-year-old female appears to have severe spinal stenosis in her lumbar spine, potentially resulting in some motor weakness of hip flexion and knee extension. I spoke to Dr. Mckeon about the case, as he is the spine surgeon here in [place] and had previously operated on this pleasant woman. He suggested admission to the hospitalist service under the hospitalist as well as pain control, treatment with steroids, pain service consult, as well as a hip and knee x-ray to assess the amount of arthritis of the right hip and right knee. In addition, we will review further images and will await further instructions from him as well. DYLAN
[2018-11-17 22:00] VITALS: BP 132/68
[2018-11-18 06:00] VITALS: BP 134/62
[2018-11-18 06:01] LABS: HEMATOCRIT 40.2 % (36.0-47.0); HEMOGLOBIN 13.2 g/dl (12.0-15.5); MEAN CORPUSCULAR HEMOGLOBIN 32.4 pg (27.0-33.0); MEAN CORPUSCULAR HGB CONC 32.8 g/dl (32.0-36.5); MEAN CORPUSCULAR VOLUME 98.5 fl (80.0-96.0); PLATELET COUNT, AUTOMATED 200 10^3/uL (150-450); RED BLOOD COUNT 4.08 10^6/uL (4.00-5.40); WHITE BLOOD COUNT 8.1 10^3/uL (4.0-10.0)
[2018-11-18 06:20] LABS: BLOOD UREA NITROGEN 23 MG/DL (7-18); CALCIUM LEVEL 9.2 MG/DL (8.8-10.2); CARBON DIOXIDE LEVEL 28 MEQ/L (21-32); CHLORIDE LEVEL 105 MEQ/L (98-107); CREATININE FOR GFR 0.86 MG/DL (0.55-1.30); GLOMERULAR FILTRATION RATE > 60.0 (>39); GLUCOSE, FASTING 112 MG/DL (70-100); POTASSIUM SERUM 3.7 MEQ/L (3.5-5.1); SODIUM LEVEL 138 MEQ/L (136-145)
[2018-11-18] MEDS ORDERED: POTASSIUM CHLORIDE 10 MEQ SR TABLET PO ONE (08:00)
[2018-11-18] MEDS: HumaLOG INSULIN (NovoLOG) PER UNIT SC SCH ×4 (08:34→21:00)
[2018-11-18] MEDS: DULoxetine 20 MG CAP (CYMBALTA) PO SCH (08:35)
[2018-11-18] MEDS: CALCIUM/VITAMIN D 500 MG TAB PO SCH (08:35)
[2018-11-18] MEDS: METOPROLOL SUCC *XL* 12.5MG PER 1/2 TAB (TopROL *XL*) PO SCH (08:35)
[2018-11-18] MEDS: VITAMIN D 1,000 INTERNATIONAL UNITS TABLET PO SCH (08:36)
[2018-11-18] MEDS: CHLORDIAZEPOXIDE 5 MG PO SCH (08:36)
[2018-11-18] MEDS: MULTIVITAMINS/MINERALS THERAP 1 TAB PO SCH (08:36)
[2018-11-18] MEDS: FUROSEMIDE 20 MG TAB PO SCH (08:36)
[2018-11-18] MEDS: ENOXAPARIN 40 MG/0.4 ML SYRINGE (J1650) SC SCH (08:36)
[2018-11-18] MEDS: POTASSIUM CHLORIDE 10 MEQ SR TABLET PO SCH (09:33)
[2018-11-18 10:26] LABS: TOTAL 25(OH) VITAMIN D 43.7 NG/ML (30.0-100.0)
[2018-11-18 10:40] LABS: VITAMIN B12 LEVEL 864 PG/ML (247-911)
[2018-11-18 10:47] LABS: FOLATE > 24.0 NG/ML (>5.4)
--- NOTE | 2018-11-18 11:05 | IPNPDOC ---
Text Note Date of Service The patient was seen on 11/18/18. NOTE SUBJECTIVE: Patient interviewed and examined this morning in her hospital room. She reports a comfortable vessel night sleep. She does not wish to be utilizing opioids for pain management as she says they've "really put her out". She reports improvement in her right hip pain. While she continues to have weakness in her right leg, patient has noted a relative improvement in her right leg's sensation, strength and range of motion. She denies any urinary retention or difficulty stooling. She continues to be fixated on financial ramifications of surgical intervention as it pertains to her right hip and right knee. PFS has been consulted. Pain management to be consulted this afternoon with the ultimate goal of improving patient's quality of life. PHYSICAL EXAMINATION: VITAL SIGNS: PLS SEE BELOW GENERAL APPEARANCE: Alert, oriented, sitting upright in bed dressed in hospital gown. Appearing stated age and in no acute distress. No use of accessory respiratory muscles HEENT: Normocephalic, atraumatic, EOMI, PERRLA, sclera nonicteric, membranes moist. no jaundice. no JVD CARDIOVASCULAR: Regular rate and rhythm, normal S1 and S2 no murmurs appreciated LUNGS: Clear to auscultation bilaterally,no wheezing, rales or rhonchi ABDOMEN: obese, soft, nontender, protuberant, bowel sounds x4 quadrants EXTREMITIES: limited exam in the right hip due to severe pain. SLR test performed bilaterally with pain experienced on the R with approximately 25 degrees of hip flexion. motor fxn bl UE 5/5. Sensation improved in R LE, although diminished compared to the L LE. No lower extremity edema or unilateral calf-swelling LABORATORY DATA, MICROBIOLOGY, IMAGING STUDIES: Please see below. IMAGING: Lumbar spine MRI (11/16/18): Multilevel disc bulging and hypertrophic change of ligamentum flavum and posterior facets. Severe spinal stenosis at L2-L3 is unchanged. There is moderate spinal stenosis at L3-4. No acute findings. Right Knee x-ray (11/16/18): Pending radiology read, severe arthritis evident Right hip x-ray (11/16/18): Pending radiology read, severe arthritis evident ASSESSMENT/PLAN: Patient is a 78-year-old white female with past medical history of spinal sten osis with neuropathy, right hip pain, hyperlipidemia, OA, NIDD, osteoporosis, GERD and depression who presents to the emergency department via EMS after waking this morning at 0400 unable to move her right leg. Patient's weakness persisted upon presentation. She denied any bowel or bladder incontinence did not demonstrate any left-sided weakness.In the emergency department, an MRI of the patient's lumbosacral spine was ordered and indicated severe spinal stenosis.Both orthopedics and hospitalist team were consulted for further evaluation and management. , patient originally presented to the emergency department on 11/11/18 after a fall onto her home hospital bed from standing height. At that time, patient denied any trauma and was unable to identify the mechanism of her fall, although she maintains she never lost consciousness. Patient was discharged home with primary follow-up. SEVERE spinal stenosis L2-L3, with right LE weakness/ lumbar radiculopathy -Denies bowel or bladder incontinence -No evidence of myelopathy. Orthopedics was consulted at the time of admission and does not feel surgical management required at this time. Recommends pain management consultation. -B12 and folate negative for abnormalities -Continue home medications for neuropathy: gabapentin and duloxetine -ARU screen despite patient indicating she does not wish to enter rehabilitation due to financial constraints -PT/OT evaluation for inability to ambulate -Pain management consulted with goal of improving patient's quality of life upon discharge. Right Hip severe osteoarthritis -Right hip x-ray demonstrates severe osteoarthritis -By mouth Tylenol 650 mg every 4 hours when necessary -Orthopedics recommended activity as tolerated. Plan to re-evaluate patient in out-patient setting for non-emergent surgical management. Diabetes Mellitus, non-insulin dependent -Sliding scale insulin -Consistent carb diet -A1c of 6.2 Hypertension - Pressures have remained controlled since admission -Continue home metoprolol, furosemide, lisinopril Hyperlipidemia -TAGs of 257, Cholesterol 240 and LDL of 144 -Consider starting statin therapy as an outpatient Hypokalemia -Continue home supplementation Hypovitaminosis D -Continue home supplementation DVT Prophylaxis: Lovenox 40 mg A-FIB/CHADSVASC A-FIB History Current/History of A-Fib/PAF?: No VS,Fishbone, I+O VS, Fishbone, I+O Laboratory Tests 11/18/18 05:38 Red Blood Count 4.08, Mean Corpuscular Volume 98.5 H, Mean Corpuscular Hemoglobin 32.4, Mean Corpuscular Hemoglobin Concent 32.8, Red Cell Distribution Width 14.0, Calcium Level 9.2 Vital Signs Date Time Temp Pulse Resp B/P (MAP) Pulse Ox O2 Delivery O2 Flow Rate FiO2 11/18/18 08:35 78 134/62 11/18/18 06:00 97.6 18 93 11/16/18 14:50 Room Air I&O- Last 24 Hours up to 6 AM 11/18/18 06:00 Intake Total 960 ml Output Total 750 ml Balance 210 ml ALKA WALKER DO November 18, 2018 11:05
[2018-11-18 14:00] VITALS: BP 133/60
[2018-11-18] MEDS: GABAPENTIN 100 MG CAP PO SCH ×2 (14:35→23:17)
--- NOTE | 2018-11-18 16:17 | CR ---
DATE OF CONSULTATION: 11/18/2018 CHIEF COMPLAINT: 1. Right low back pain. 2. Right hip pain. HISTORY OF PRESENT ILLNESS: Yael is a 78-year-old female who was admitted two days ago due to inability to move her right leg and ambulate. States that she was told that she needs right hip surgery and right knee surgery, and states that she is not going to have that and will be thinking about possibly in the future. Today I reviewed her MRI and discussed potential treatments at the pain clinic to include lumbar facet block and right sacroiliac joint injection. States that she is not interested in any procedures until she discusses with her family. Discussed the possibility of doing rehab. Patient adamantly is refusing to go into any rehab situation. States that she wants to go home and have the assistance of [facility] nursing and family. Son is in the room during our discussion. States she is doing better today with ambulating with assist of a walker. Currently not using any pain medications. PAST MEDICAL HISTORY: Spinal stenosis with neuropathy, chronic right hip pain, hyperlipidemia, hypertension, gastroesophageal reflux disease (GERD), generalized arthritis, osteoporosis, non-insulin dependent diabetes mellitus, depression, overactive bladder, hypokalemia. SURGICAL HISTORY: Left knee replacement 2011, spinal canal surgery 2009, total left hip replacement 2002, appendectomy, left knee arthroscopy, right heel spur excision, dilation and curettage (D and C) times three, hysterectomy and breast biopsy. SOCIAL HISTORY: Lives with her . Has a supportive family nearby. Denies tobacco or alcohol use. Denies illicit drug use. FAMILY HISTORY: Positive for breast cancer. ALLERGIES: PENICILLIN. REVIEW OF SYSTEM: 11-point review of systems is negative except as reported in the history of the present illness. PHYSICAL EXAMINATION: Awake, alert, pleasant. No acute distress. She demonstrates jerking motions in her lower extremities, which the patient states is chronic. Cardiac: S1, S2 normal rate and rhythm. Respiratory: Lung sounds are clear. Respirations nonlabored. Neurologic: Muscle strength testing is 3/5 bilaterally. Normal sensation to light touch lower extremities. Lumbosacral spine: Nontender over LS axis. Specific point tenderness over right SIJ. Nontender over lumbar paraspinals. Specific tenderness noted over right hip. No redness or swelling. Needed assistance to roll onto her side. DIAGNOSTIC DATA: MRI of the LS spine 11/16/2018 reviewed. ASSESSMENT: 1. Lumbosacral spinal stenosis with radiculopathy. 2. Sacroiliitis. PLAN: Discussed different treatment options. She would like to talk this over with her family. She does not seem to be inclined to want to pursue any procedures. States that she has had hip injections in the past and the last one was done not too long ago per patient and it did not work. Her plan is to go home with her family.
[2018-11-18] MEDS: LISINOPRIL *2.5 MG* TAB PO SCH (21:00)
[2018-11-18] MEDS: MYRBETRIQ 25 MG PO SCH (21:01)
[2018-11-18 22:00] VITALS: BP 138/63
[2018-11-19] MEDS: NYSTATIN 100,000 UNITS/GM TOPICAL PWD 15 GM TOP PRN (05:55)
[2018-11-19 07:15] LABS: HEMATOCRIT 42.7 % (36.0-47.0); MEAN CORPUSCULAR HEMOGLOBIN 32.3 pg (27.0-33.0); MEAN CORPUSCULAR HGB CONC 32.8 g/dl (32.0-36.5); MEAN CORPUSCULAR VOLUME 98.6 fl (80.0-96.0); PLATELET COUNT, AUTOMATED 227 10^3/uL (150-450); RED BLOOD COUNT 4.33 10^6/uL (4.00-5.40); WHITE BLOOD COUNT 9.1 10^3/uL (4.0-10.0)
[2018-11-19 07:35] LABS: BLOOD UREA NITROGEN 20 MG/DL (7-18); CALCIUM LEVEL 9.5 MG/DL (8.8-10.2); CARBON DIOXIDE LEVEL 28 MEQ/L (21-32); CHLORIDE LEVEL 104 MEQ/L (98-107); CREATININE FOR GFR 0.82 MG/DL (0.55-1.30); GLOMERULAR FILTRATION RATE > 60.0 (>39); GLUCOSE, FASTING 113 MG/DL (70-100); POTASSIUM SERUM 4.1 MEQ/L (3.5-5.1); SODIUM LEVEL 138 MEQ/L (136-145)
[2018-11-19] MEDS: CALCIUM/VITAMIN D 500 MG TAB PO SCH (08:21)
[2018-11-19] MEDS: FUROSEMIDE 20 MG TAB PO SCH (08:21)
[2018-11-19] MEDS: DULoxetine 20 MG CAP (CYMBALTA) PO SCH (08:21)
[2018-11-19] MEDS: CHLORDIAZEPOXIDE 5 MG PO SCH (08:21)
[2018-11-19] MEDS: MULTIVITAMINS/MINERALS THERAP 1 TAB PO SCH (08:21)
[2018-11-19] MEDS: METOPROLOL SUCC *XL* 12.5MG PER 1/2 TAB (TopROL *XL*) PO SCH (08:23)
[2018-11-19] MEDS: POTASSIUM CHLORIDE 10 MEQ SR TABLET PO SCH (08:24)
[2018-11-19] MEDS: VITAMIN D 1,000 INTERNATIONAL UNITS TABLET PO SCH (08:24)
[2018-11-19] MEDS: ENOXAPARIN 40 MG/0.4 ML SYRINGE (J1650) SC SCH (08:24)
[2018-11-19 08:25] VITALS: BP 130/60
[2018-11-19] MEDS: HumaLOG INSULIN (NovoLOG) PER UNIT SC SCH ×4 (08:25→21:00)
--- NOTE | 2018-11-19 13:47 | IPNPDOC ---
Date Seen The patient was seen on 11/19/18. Progress Note SUBJECTIVE: Patient was seen and examined this morning. She currently has no new complaints. She states that she has chronic pain which is mostly in her hips and knees. She states that she does not have any back pain. She continues to work with physical therapy and states it is going well. She states that she had a misunderstanding and thought that placement into physical therapy was the same a s a custodial. She had thought that if at a custodial she would never go back to her own own again OBJECTIVE PHYSICAL EXAMINATION: VITAL SIGNS: Please see below. GENERAL: Awake, alert, and oriented. Appears in no acute distress. Sitting in chair comfortably. Talkative HEENT: Atruamatic normocephalic. Eyes are non-icteric. Trachea is midline. CARDIOVASCULAR: Normal S1, S2. Regular rate and rhythm. No clicks, rubs, or murmurs. RESPIRATORY: Clear vesicular lung sounds bilaterally with good respiratory effort. No wheezes, rhonci, or rales ABDOMINAL: Soft, nondistended, nontender to palpation of all 4 quadrants. No rebound tenderness or guarding. Positive bowel sounds EXTREMITIES: Slight 1mm pitting edema in bilateral lower extremities. Full and equal pulses bilateral in upper and lower extremities NEUROLOGICAL: No focal neurological deficits noted PSYCHOLOGICAL: Mood and affect appear appropriate LABORATORY DATA, IMAGING STUDIES, MICROBIOLOGY: Please see below. DVT prophylaxis ordered?: Lovenox ASSESSMENT AND PLAN: Patient is a 78 year old female who presented to the [facility] ER after waking in the morning with the inability to move her right leg. Patient had presented with weakness. She had denied any bowel or bladder incontinence did not demonstrate any left-sided weakness. Patient was found to have severe spinal stenosis. [place] [facility] and hospitalists were consulted. PROBLEMS: 1. SEVERE spinal stenosis L2-L3, with right LE weakness/ lumbar radiculopathy -Patient denies any bowel or bladder incontinence -Patient has had pain management consultation. She has refused any steroid injections. She states that her pain is currently mostly in her hips and knees. -Patient has continued with PT/OT. -Rehab placement pending. Likely at [facility] 2. Right Hip Severe Osteoarthritis -Tylenol 650 mg q4h prn -Patient will have follow-up with orthopedics 3. DMII -Sliding scale insulin -Consistent carbohydrate diet -A1c of 6.2 4. HTN -Continue metorpolol, furosemide, and lisinopril 5. Hyperlipidemia -Patient may benefit from statin as outpatient 6. DVT prophylaxis -Lovenox 40 mg DISPOSITION: Pending rehab placement A-FIB/CHADSVASC A-FIB History Current/History of A-Fib/PAF?: No VS, I&O, 24H, Fishbone Vital Signs/I&O Vital Signs Date Time Temp Pulse Resp B/P (MAP) Pulse Ox O2 Delivery O2 Flow Rate FiO2 11/19/18 08:25 79 130/60 (83) 97 11/19/18 06:00 97.5 11/16/18 14:50 Room Air I&O- Last 24 Hours up to 6 AM 11/19/18 06:00 Intake Total 1440 ml Output Total 1800 ml Balance -360 ml Laboratory Data 24H LABS Laboratory Tests 2 11/18/18 16:52: Bedside Glucose (Misc Panel) 112H 11/18/18 20:48: Bedside Glucose (Misc Panel) 141H 11/19/18 06:28: Nucleated Red Blood Cells % (auto) 0.0, Anion Gap 6L, Glomerular Filtration Rate > 60.0, Blood Urea Nitrogen 20H, Creatinine 0.82, Sodium Level 138, Potassium Level 4.1, Chloride Level 104, Carbon Dioxide Level 28, Calcium Level 9.5 11/19/18 11:44: Bedside Glucose (Misc Panel) 107 CBC/BMP Laboratory Tests 11/19/18 06:28 Red Blood Count 4.33, Mean Corpuscular Volume 98.6 H, Mean Corpuscular Hemoglobin 32.3, Mean Corpuscular Hemoglobin Concent 32.8, Red Cell Distribution Width 13.9, Calcium Level 9.5 GME ATTESTATION GME ATTESTATION My faculty preceptor for this patient encounter was physically present during the encounter and was fully available. All aspects of the patient interview, examination, medical decision making process, and medical care plan development were reviewed and approved by the faculty preceptor. The faculty preceptor is aware and concurs with the plan as stated in the body of this note and will attest to such by his/her cosignature. JAMAL SOTO DO November 19, 2018 13:47
[2018-11-19 14:00] VITALS: BP 130/70
[2018-11-19] MEDS: GABAPENTIN 100 MG CAP PO SCH ×2 (15:49→21:21)
[2018-11-19] MEDS: OSTEO BIFLEX PO SCH (15:49)
[2018-11-19] MEDS: LISINOPRIL *2.5 MG* TAB PO SCH (21:21)
[2018-11-19] MEDS: MYRBETRIQ 25 MG PO SCH (21:21)
[2018-11-19 22:00] VITALS: BP 140/70
[2018-11-20 06:00] VITALS: BP 125/69
[2018-11-20 06:32] LABS: HEMATOCRIT 39.6 % (36.0-47.0); HEMOGLOBIN 13.1 g/dl (12.0-15.5); MEAN CORPUSCULAR HEMOGLOBIN 32.2 pg (27.0-33.0); MEAN CORPUSCULAR HGB CONC 33.1 g/dl (32.0-36.5); MEAN CORPUSCULAR VOLUME 97.3 fl (80.0-96.0); PLATELET COUNT, AUTOMATED 205 10^3/uL (150-450); RED BLOOD COUNT 4.07 10^6/uL (4.00-5.40); WHITE BLOOD COUNT 7.5 10^3/uL (4.0-10.0)
[2018-11-20 07:02] LABS: BLOOD UREA NITROGEN 17 MG/DL (7-18); CALCIUM LEVEL 9.4 MG/DL (8.8-10.2); CARBON DIOXIDE LEVEL 29 MEQ/L (21-32); CHLORIDE LEVEL 104 MEQ/L (98-107); CREATININE FOR GFR 0.78 MG/DL (0.55-1.30); GLOMERULAR FILTRATION RATE > 60.0 (>39); GLUCOSE, FASTING 102 MG/DL (70-100); POTASSIUM SERUM 3.7 MEQ/L (3.5-5.1); SODIUM LEVEL 139 MEQ/L (136-145)
[2018-11-20] MEDS: HumaLOG INSULIN (NovoLOG) PER UNIT SC SCH ×4 (07:30→21:00)
[2018-11-20] MEDS: VITAMIN D 1,000 INTERNATIONAL UNITS TABLET PO SCH (08:44)
[2018-11-20] MEDS: OSTEO BIFLEX PO SCH (08:45)
[2018-11-20] MEDS: METOPROLOL SUCC *XL* 12.5MG PER 1/2 TAB (TopROL *XL*) PO SCH (08:45)
[2018-11-20] MEDS: FUROSEMIDE 20 MG TAB PO SCH (08:45)
[2018-11-20] MEDS: CHLORDIAZEPOXIDE 5 MG PO SCH (08:45)
[2018-11-20] MEDS: POTASSIUM CHLORIDE 10 MEQ SR TABLET PO SCH (08:45)
[2018-11-20] MEDS: CALCIUM/VITAMIN D 500 MG TAB PO SCH (08:45)
[2018-11-20] MEDS: ENOXAPARIN 40 MG/0.4 ML SYRINGE (J1650) SC SCH (08:45)
[2018-11-20] MEDS: DULoxetine 20 MG CAP (CYMBALTA) PO SCH (08:45)
[2018-11-20] MEDS: MULTIVITAMINS/MINERALS THERAP 1 TAB PO SCH (08:45)
[2018-11-20 14:00] VITALS: BP 117/70
[2018-11-20] MEDS: GABAPENTIN 100 MG CAP PO SCH ×2 (14:16→21:01)
--- NOTE | 2018-11-20 18:33 | IPNPDOC ---
Date Seen The patient was seen on 11/20/18. Progress Note SUBJECTIVE: Patient was seen and examined this morning. She states that last night she woke up and had difficulty moving her legs. She states that this had made her realize that she will need rehab as her family will not be able to care for her. The patient states that she is in agreement for ARU. She otherwise has no new complaints OBJECTIVE PHYSICAL EXAMINATION: VITAL SIGNS: Please see below. GENERAL: Awake, alert, and oriented. In no acute distress. Sitting comfortably in chair. Very conversive HEENT: Atraumatic, normocephalic. Eyes are non-icteric. Trachea is midline. Mucous membranes are pink and moist CARDIOVASCULAR: Normal S1, S2. Regular rate and rhythm. No clicks rubs or mur murs. RESPIRATORY: Clear vesicular breath sounds bilaterally. No wheezes, rhonci, or rales ABDOMINAL: Soft, nondistended, nontender to palpation throughout. No rebound tenderness or guarding. positive bowel sounds EXTREMITIES: No edema. Full and equal pulses in bilateral upper and lower extremities NEUROLOGICAL: No focal neurological deficits. Muscle strength testing 4/5 in bilateral lower extremities PSYCHOLOGICAL: Mood and affect appear appropriate LABORATORY DATA, IMAGING STUDIES, MICROBIOLOGY: Please see below. DVT prophylaxis ordered?: Lovenox ASSESSMENT AND PLAN:Patient is a 78 year old female who presented to the [facility] ER after waking in the morning with the inability to move her right leg. Patient had presented with weakness. She had denied any bowel or bladder incontinence did not demonstrate any left-sided weakness. Patient was found to have severe spinal stenosis. [place] [facility] and hospitalists were consulted. PROBLEMS: 1. SEVERE spinal stenosis L2-L3, with right LE weakness/ lumbar radiculopathy -Patient denies any bowel or bladder incontinence -Patient has had pain management consultation. She has refused any steroid injections. She states that her pain is currently mostly in her hips and knees. -Patient has continued with PT/OT. -Rehab placement pending. 2. Right Hip Severe Osteoarthritis -Tylenol 650 mg q4h prn -Patient will have follow-up with orthopedics 3. DMII -Sliding scale insulin -Consistent carbohydrate diet -A1c of 6.2 4. HTN -Continue metorpolol, furosemide, and lisinopril 5. Hyperlipidemia -Patient may benefit from statin as outpatient 6. DVT prophylaxis -Lovenox 40 mg DISPOSITION: Patient has become agreeable to rehab. Pending placement A-FIB/CHADSVASC A-FIB History Current/History of A-Fib/PAF?: No VS, I&O, 24H, Fishbone Vital Signs/I&O Vital Signs Date Time Temp Pulse Resp B/P (MAP) Pulse Ox O2 Delivery O2 Flow Rate FiO2 11/20/18 08:45 72 125/69 11/20/18 06:00 96.8 18 96 11/16/18 14:50 Room Air I&O- Last 24 Hours up to 6 AM 11/20/18 06:00 Intake Total 2660 ml Output Total 3850 ml Balance -1190 ml Laboratory Data 24H LABS Laboratory Tests 2 11/19/18 16:55: Bedside Glucose (Misc Panel) 189H 11/19/18 21:05: Bedside Glucose (Misc Panel) 142H 11/20/18 05:55: Nucleated Red Blood Cells % (auto) 0.0, Anion Gap 6L, Glomerular Filtration Rate > 60.0, Blood Urea Nitrogen 17, Creatinine 0.78, Sodium Level 139, Potassium Level 3.7, Chloride Level 104, Carbon Dioxide Level 29, Calcium Level 9.4 11/20/18 11:49: Bedside Glucose (Misc Panel) 107 CBC/BMP Laboratory Tests 11/20/18 05:55 Red Blood Count 4.07, Mean Corpuscular Volume 97.3 H, Mean Corpuscular Hemoglobin 32.2, Mean Corpuscular Hemoglobin Concent 33.1, Red Cell Distribution Width 13.9, Calcium Level 9.4 GME ATTESTATION GME ATTESTATION My faculty preceptor for this patient encounter was physically present during the encounter and was fully available. All aspects of the patient interview, examination, medical decision making process, and medical care plan development were reviewed and approved by the faculty preceptor. The faculty preceptor is aware and concurs with the plan as stated in the body of this note and will attest to such by his/her cosignature. ATTENDING NOTE I, Nat Laws, have both independently examined this patient as well as reviewed the documentation. I have discussed in detail with the resident the findings and plan of treatment as documented by the resident. I agree with their findings and treatment plan. I will continue to follow the patient and offer further guidance to the patients care as necessary during this hospital stay. JAMAL SOTO DO November 20, 2018 13:18 NAT LAWS MD November 21, 2018 14:29
[2018-11-20] MEDS: LISINOPRIL *2.5 MG* TAB PO SCH (21:00)
[2018-11-20] MEDS: MYRBETRIQ 25 MG PO SCH (21:02)
[2018-11-20 22:00] VITALS: BP 107/62
[2018-11-21] MEDS: PERCOCET 5MG/325MG TAB PO PRN (01:17)
[2018-11-21 06:00] VITALS: BP 134/74
[2018-11-21 06:35] LABS: HEMATOCRIT 40.4 % (36.0-47.0); HEMOGLOBIN 13.1 g/dl (12.0-15.5); MEAN CORPUSCULAR HEMOGLOBIN 32.4 pg (27.0-33.0); MEAN CORPUSCULAR HGB CONC 32.4 g/dl (32.0-36.5); PLATELET COUNT, AUTOMATED 196 10^3/uL (150-450); RED BLOOD COUNT 4.04 10^6/uL (4.00-5.40); WHITE BLOOD COUNT 6.8 10^3/uL (4.0-10.0)
[2018-11-21 06:54] LABS: BLOOD UREA NITROGEN 17 MG/DL (7-18); CALCIUM LEVEL 9.4 MG/DL (8.8-10.2); CARBON DIOXIDE LEVEL 31 MEQ/L (21-32); CHLORIDE LEVEL 102 MEQ/L (98-107); CREATININE FOR GFR 0.77 MG/DL (0.55-1.30); GLOMERULAR FILTRATION RATE > 60.0 (>39); GLUCOSE, FASTING 91 MG/DL (70-100); POTASSIUM SERUM 3.8 MEQ/L (3.5-5.1); SODIUM LEVEL 137 MEQ/L (136-145)
[2018-11-21] MEDS: HumaLOG INSULIN (NovoLOG) PER UNIT SC SCH ×4 (07:01→21:00)
[2018-11-21] MEDS: NYSTATIN 100,000 UNITS/GM TOPICAL PWD 15 GM TOP PRN (08:45)
[2018-11-21] MEDS: ENOXAPARIN 40 MG/0.4 ML SYRINGE (J1650) SC SCH (08:45)
[2018-11-21] MEDS: VITAMIN D 1,000 INTERNATIONAL UNITS TABLET PO SCH (08:45)
[2018-11-21] MEDS: FUROSEMIDE 20 MG TAB PO SCH (08:45)
[2018-11-21] MEDS: OSTEO BIFLEX PO SCH (08:46)
[2018-11-21] MEDS: POTASSIUM CHLORIDE 10 MEQ SR TABLET PO SCH (08:46)
[2018-11-21] MEDS: CHLORDIAZEPOXIDE 5 MG PO SCH (08:46)
[2018-11-21] MEDS: METOPROLOL SUCC *XL* 12.5MG PER 1/2 TAB (TopROL *XL*) PO SCH (08:46)
[2018-11-21] MEDS: MULTIVITAMINS/MINERALS THERAP 1 TAB PO SCH (08:46)
[2018-11-21] MEDS: DULoxetine 20 MG CAP (CYMBALTA) PO SCH (08:46)
[2018-11-21] MEDS: CALCIUM/VITAMIN D 500 MG TAB PO SCH (08:46)
--- NOTE | 2018-11-21 12:05 | IPNPDOC ---
Date Seen The patient was seen on 11/21/18. Progress Note SUBJECTIVE: Patient was seen and examined this morning. She continues to complain of intermittent leg pain at night. She states that she is feeling ok today. She is looking forward to going to rehab OBJECTIVE PHYSICAL EXAMINATION: VITAL SIGNS: Please see below. GENERAL: Awake, alert, and oriented. Appears in no acute distress. Sitting comfortably in chair HEENT: Atruamatic normocephalic. Eyes are nonicteric. Trachea is midline. CARDIOVASCULAR: Normal rate and rhythm with occasional ectopic beats. No clicks rubs or murmurs RESPIRATORY: Clear vesicular breath sounds with good respiratory effort. No wheezes, rhonci, or rales. ABDOMINAL: Soft, nondistended. Nontender to palpation throughout. Positive bowel sounds EXTREMITIES: No edema. Full and equal pulses in bilateral upper and lower extremities NEUROLOGICAL: No focal neurological deficits PSYCHOLOGICAL: Mood and affect appear appropriate LABORATORY DATA, IMAGING STUDIES, MICROBIOLOGY: Please see below. DVT prophylaxis ordered?: Lovenox ASSESSMENT AND PLAN: Patient is a 78 year old female who presented to the [facility] ER after waking in the morning with the inability to move her right leg. Patient had presented with weakness. She had denied any bowel or bladder incontinence did not demonstrate any left-sided weakness. Patient was found to have severe spinal stenosis. [place] [facility] and hospitalists were consulted. PROBLEMS: 1. SEVERE spinal stenosis L2-L3, with right LE weakness/ lumbar radiculopathy -Patient denies any bowel or bladder incontinence -Patient has had pain management consultation. She has refused any steroid injections. She states that her pain is currently mostly in her hips and knees. -Patient has continued with PT/OT. -Patient continues to await placement in ARU 2. Right Hip Severe Osteoarthritis -Tylenol 650 mg q4h prn -Patient will have follow-up with orthopedics 3. DMII -Sliding scale insulin -Consistent carbohydrate diet -A1c of 6.2 4. HTN -Continue metorpolol, furosemide, and lisinopril 5. Hyperlipidemia -Patient may benefit from statin as outpatient 6. DVT prophylaxis -Lovenox 40 mg DISPOSITION: ARU placement A-FIB/CHADSVASC A-FIB History Current/History of A-Fib/PAF?: No VS, I&O, 24H, Fishbone Vital Signs/I&O Vital Signs Date Time Temp Pulse Resp B/P (MAP) Pulse Ox O2 Delivery O2 Flow Rate FiO2 11/21/18 08:46 87 134/74 11/21/18 06:00 98.5 18 93 11/16/18 14:50 Room Air I&O- Last 24 Hours up to 6 AM 11/21/18 06:00 Intake Total 1960 ml Output Total 2300 ml Balance -340 ml Laboratory Data 24H LABS Laboratory Tests 2 11/20/18 16:31: Bedside Glucose (Misc Panel) 122H 11/20/18 20:10: Bedside Glucose (Misc Panel) 169H 11/21/18 05:32: Nucleated Red Blood Cells % (auto) 0.0, Anion Gap 4L, Glomerular Filtration Rate > 60.0, Blood Urea Nitrogen 17, Creatinine 0.77, Sodium Level 137, Potassium Level 3.8, Chloride Level 102, Carbon Dioxide Level 31, Calcium Level 9.4 CBC/BMP Laboratory Tests 11/21/18 05:32 Red Blood Count 4.04, Mean Corpuscular Volume 100.0 H, Mean Corpuscular Hemoglobin 32.4, Mean Corpuscular Hemoglobin Concent 32.4, Red Cell Distribution Width 13.9, Calcium Level 9.4 GME ATTESTATION GME ATTESTATION My faculty preceptor for this patient encounter was physically present during the encounter and was fully available. All aspects of the patient interview, examination, medical decision making process, and medical care plan development were reviewed and approved by the faculty preceptor. The faculty preceptor is aware and concurs with the plan as stated in the body of this note and will attest to such by his/her cosignature. ATTENDING NOTE I, Nat Laws, have both independently examined this patient as well as reviewed the documentation. I have discussed in detail with the resident the findings and plan of treatment as documented by the resident. I agree with their findings and treatment plan. I will continue to follow the patient and offer further guidance to the patients care as necessary during this hospital stay. JAMAL SOTO DO November 21, 2018 12:05 NAT LAWS MD November 21, 2018 14:08
[2018-11-21 14:00] VITALS: BP 142/65
[2018-11-21] MEDS: GABAPENTIN 100 MG CAP PO SCH ×2 (15:00→23:42)
[2018-11-21] MEDS: LISINOPRIL *2.5 MG* TAB PO SCH (21:16)
[2018-11-21] MEDS: MYRBETRIQ 25 MG PO SCH (21:16)
[2018-11-21 22:00] VITALS: BP 149/69
[2018-11-22 06:00] VITALS: BP 129/61
[2018-11-22 06:09] LABS: HEMATOCRIT 39.5 % (36.0-47.0); MEAN CORPUSCULAR HGB CONC 32.9 g/dl (32.0-36.5); MEAN CORPUSCULAR VOLUME 97.3 fl (80.0-96.0); PLATELET COUNT, AUTOMATED 220 10^3/uL (150-450); RED BLOOD COUNT 4.06 10^6/uL (4.00-5.40); WHITE BLOOD COUNT 7.4 10^3/uL (4.0-10.0)
[2018-11-22 06:32] LABS: BLOOD UREA NITROGEN 20 MG/DL (7-18); CALCIUM LEVEL 9.4 MG/DL (8.8-10.2); CARBON DIOXIDE LEVEL 29 MEQ/L (21-32); CHLORIDE LEVEL 104 MEQ/L (98-107); CREATININE FOR GFR 0.83 MG/DL (0.55-1.30); GLOMERULAR FILTRATION RATE > 60.0 (>39); GLUCOSE, FASTING 107 MG/DL (70-100); POTASSIUM SERUM 3.9 MEQ/L (3.5-5.1); SODIUM LEVEL 138 MEQ/L (136-145)
[2018-11-22 07:30] VITALS: BP 121/56
[2018-11-22] MEDS: HumaLOG INSULIN (NovoLOG) PER UNIT SC SCH ×4 (07:30→21:34)
[2018-11-22] MEDS: CHLORDIAZEPOXIDE 5 MG PO SCH (09:07)
[2018-11-22] MEDS: CALCIUM/VITAMIN D 500 MG TAB PO SCH (09:23)
[2018-11-22] MEDS: FUROSEMIDE 20 MG TAB PO SCH (09:23)
[2018-11-22] MEDS: POTASSIUM CHLORIDE 10 MEQ SR TABLET PO SCH (09:23)
[2018-11-22] MEDS: DULoxetine 20 MG CAP (CYMBALTA) PO SCH (09:23)
[2018-11-22] MEDS: MULTIVITAMINS/MINERALS THERAP 1 TAB PO SCH (09:24)
[2018-11-22] MEDS: OSTEO BIFLEX PO SCH (09:24)
[2018-11-22] MEDS: METOPROLOL SUCC *XL* 12.5MG PER 1/2 TAB (TopROL *XL*) PO SCH (09:25)
[2018-11-22] MEDS: VITAMIN D 1,000 INTERNATIONAL UNITS TABLET PO SCH (09:25)
[2018-11-22] MEDS: ENOXAPARIN 40 MG/0.4 ML SYRINGE (J1650) SC SCH (09:26)
[2018-11-22] MEDS: NYSTATIN 100,000 UNITS/GM TOPICAL PWD 15 GM TOP PRN (10:34)
[2018-11-22 14:00] VITALS: BP 153/70
--- NOTE | 2018-11-22 14:30 | IPNPDOC ---
Date Seen The patient was seen on 11/22/18. Progress Note SUBJECTIVE: Patient was seen and examined this morning. No new complaints OBJECTIVE PHYSICAL EXAMINATION: VITAL SIGNS: Please see below. GENERAL: Awake, alert, and oriented. Appears in no acute distress. Sitting comfortably in chair HEENT: Atruamatic normocephalic. Eyes are nonicteric. Trachea is midline. CARDIOVASCULAR: Normal rate and rhythm with occasional ectopic beats. No clicks rubs or murmurs RESPIRATORY: Clear vesicular breath sounds with good respiratory effort. No wheezes, rhonci, or rales. ABDOMINAL: Soft, nondistended. Nontender to palpation throughout. Positive bowel sounds EXTREMITIES: No edema. Full and equal pulses in bilateral upper and lower extremities NEUROLOGICAL: No focal neurological deficits PSYCHOLOGICAL: Mood and affect appear appropriate LABORATORY DATA, IMAGING STUDIES, MICROBIOLOGY: Please see below. DVT prophylaxis ordered?: Lovenox ASSESSMENT AND PLAN: Patient is a 78 year old female who presented to the [facility] ER after waking in the morning with the inability to move her right leg. Patient had presented with weakness. She had denied any bowel or bladder incontinence did not demonstrate any left-sided weakness. Patient was found to have severe spinal stenosis. [place] [facility] and hospitalists were consulted. PROBLEMS: 1. SEVERE spinal stenosis L2-L3, with right LE weakness/ lumbar radiculopathy -Patient denies any bowel or bladder incontinence -Patient has had pain management consultation. She has refused any steroid injections. She states that her pain is currently mostly in her hips and knees. -Patient has continued with PT/OT. -ARU placement on Saturday 11/25 2. Right Hip Severe Osteoarthritis -Tylenol 650 mg q4h prn -Patient will have follow-up with orthopedics 3. DMII -Sliding scale insulin -Consistent carbohydrate diet -A1c of 6.2 4. HTN -Continue metorpolol, furosemide, and lisinopril 5. Hyperlipidemia -Patient may benefit from statin as outpatient 6. DVT prophylaxis -Lovenox 40 mg DISPOSITION: ARU placement likely 11/25/18 A-FIB/CHADSVASC A-FIB History Current/History of A-Fib/PAF?: No VS, I&O, 24H, Fishbone Vital Signs/I&O Vital Signs Date Time Temp Pulse Resp B/P (MAP) Pulse Ox O2 Delivery O2 Flow Rate FiO2 11/22/18 09:25 65 121/56 11/22/18 07:30 97.8 16 97 11/16/18 14:50 Room Air I&O- Last 24 Hours up to 6 AM 11/22/18 06:00 Intake Total 2780 ml Output Total 2700 ml Balance 80 ml Laboratory Data 24H LABS Laboratory Tests 2 11/21/18 17:28: Bedside Glucose (Misc Panel) 168H 11/21/18 20:01: Bedside Glucose (Misc Panel) 207H 11/22/18 05:26: Nucleated Red Blood Cells % (auto) 0.0, Anion Gap 5L, Glomerular Filtration Rate > 60.0, Blood Urea Nitrogen 20H, Creatinine 0.83, Sodium Level 138, Potassium Level 3.9, Chloride Level 104, Carbon Dioxide Level 29, Calcium Level 9.4 11/22/18 07:44: Bedside Glucose (Misc Panel) 97 11/22/18 12:19: Bedside Glucose (Misc Panel) 86 CBC/BMP Laboratory Tests 11/22/18 05:26 Red Blood Count 4.06, Mean Corpuscular Volume 97.3 H, Mean Corpuscular Hemoglobin 32.0, Mean Corpuscular Hemoglobin Concent 32.9, Red Cell Distribution Width 13.8, Calcium Level 9.4 GME ATTESTATION GME ATTESTATION My faculty preceptor for this patient encounter was physically present during the encounter and was fully available. All aspects of the patient interview, examination, medical decision making process, and medical care plan development were reviewed and approved by the faculty preceptor. The faculty preceptor is aware and concurs with the plan as stated in the body of this note and will attest to such by his/her cosignature. ATTENDING NOTE I, Nat Laws, have both independently examined this patient as well as reviewed the documentation. I have discussed in detail with the resident the findings and plan of treatment as documented by the resident. I agree with their findings and treatment plan. I will continue to follow the patient and offer further guidance to the patients care as necessary during this hospital stay. JAMAL SOTO DO November 22, 2018 14:30 NAT LAWS MD November 22, 2018 16:39
[2018-11-22] MEDS: GABAPENTIN 100 MG CAP PO SCH ×2 (14:58→22:13)
[2018-11-22] MEDS: LISINOPRIL *2.5 MG* TAB PO SCH (21:33)
[2018-11-22] MEDS: MYRBETRIQ 25 MG PO SCH (22:13)
[2018-11-23] MEDS: PERCOCET 5MG/325MG TAB PO PRN (03:29)
[2018-11-23 06:00] VITALS: BP 135/76
[2018-11-23 06:52] LABS: HEMATOCRIT 37.8 % (36.0-47.0); HEMOGLOBIN 12.6 g/dl (12.0-15.5); MEAN CORPUSCULAR HEMOGLOBIN 32.6 pg (27.0-33.0); MEAN CORPUSCULAR HGB CONC 33.3 g/dl (32.0-36.5); MEAN CORPUSCULAR VOLUME 97.7 fl (80.0-96.0); PLATELET COUNT, AUTOMATED 211 10^3/uL (150-450); RED BLOOD COUNT 3.87 10^6/uL (4.00-5.40); WHITE BLOOD COUNT 7.2 10^3/uL (4.0-10.0)
[2018-11-23 07:24] LABS: BLOOD UREA NITROGEN 18 MG/DL (7-18); CALCIUM LEVEL 9.5 MG/DL (8.8-10.2); CARBON DIOXIDE LEVEL 31 MEQ/L (21-32); CHLORIDE LEVEL 104 MEQ/L (98-107); CREATININE FOR GFR 0.79 MG/DL (0.55-1.30); GLOMERULAR FILTRATION RATE > 60.0 (>39); GLUCOSE, FASTING 104 MG/DL (70-100); POTASSIUM SERUM 4.4 MEQ/L (3.5-5.1); SODIUM LEVEL 137 MEQ/L (136-145)
[2018-11-23] MEDS: DULoxetine 20 MG CAP (CYMBALTA) PO SCH (08:41)
[2018-11-23] MEDS: METOPROLOL SUCC *XL* 12.5MG PER 1/2 TAB (TopROL *XL*) PO SCH (08:41)
[2018-11-23] MEDS: HumaLOG INSULIN (NovoLOG) PER UNIT SC SCH ×4 (08:41→21:00)
[2018-11-23] MEDS: POTASSIUM CHLORIDE 10 MEQ SR TABLET PO SCH (08:42)
[2018-11-23] MEDS: FUROSEMIDE 20 MG TAB PO SCH (08:42)
[2018-11-23] MEDS: VITAMIN D 1,000 INTERNATIONAL UNITS TABLET PO SCH (08:42)
[2018-11-23] MEDS: CALCIUM/VITAMIN D 500 MG TAB PO SCH (08:42)
[2018-11-23] MEDS: MULTIVITAMINS/MINERALS THERAP 1 TAB PO SCH (08:42)
[2018-11-23] MEDS: OSTEO BIFLEX PO SCH (08:42)
[2018-11-23] MEDS: ENOXAPARIN 40 MG/0.4 ML SYRINGE (J1650) SC SCH (08:43)
[2018-11-23] MEDS: CHLORDIAZEPOXIDE 5 MG PO SCH (08:43)
--- NOTE | 2018-11-23 12:36 | IPNPDOC ---
Date Seen The patient was seen on 11/23/18. Progress Note SUBJECTIVE: Patient was seen and examined this morning. She currently states that she continues to have muscle cramping and difficulty with ambulation at times. She states that last night she was unable to extend her arm when she woke up. She states that she was asleep on her left side and when she woke up her left arm was numb. She states that this lasted a few minutes. In addition, she also admits to having full body cramps/contractures. OBJECTIVE PHYSICAL EXAMINATION: VITAL SIGNS: Please see below. GENERAL: Awake, alert, and oriented. Appears in no acute distress. Sitting comfortably in chair HEENT: Atruamatic normocephalic. Eyes are nonicteric. Trachea is midline. CARDIOVASCULAR: Normal rate and rhythm with occasional ectopic beats. No clicks rubs or murmurs RESPIRATORY: Clear vesicular breath sounds with good respiratory effort. No wheezes, rhonci, or rales. ABDOMINAL: Soft, nondistended. Nontender to palpation throughout. Positive bowel sounds EXTREMITIES: No edema. Full and equal pulses in bilateral upper and lower extremities. Normal reflexes in upper and lower extremities NEUROLOGICAL: No focal neurological deficits PSYCHOLOGICAL: Histrionic in character LABORATORY DATA, IMAGING STUDIES, MICROBIOLOGY: Please see below. DVT prophylaxis ordered?: Lovenox ASSESSMENT AND PLAN: Patient is a 78 year old female who presented to the [facility] ER after waking in the morning with the inability to move her right leg. Patient had presented with weakness. She had denied any bowel or bladder incontinence did not demonstrate any left-sided weakness. Patient was found to have severe spinal stenosis. [place] [facility] and hospitalist team were consulted. PROBLEMS: 1. SEVERE spinal stenosis L2-L3, with right LE weakness/ lumbar radiculopathy -Patient denies any bowel or bladder incontinence -Patient has had pain management consultation. She has refused any steroid injections. She states that her pain is currently mostly in her hips and knees. -Patient has continued with PT/OT. -ARU placement on Saturday 11/25 2. Bilateral arm and leg body cramps -Patient has complained of bilateral arm and muscle cramping that causes her to have contractures and then "throws" her. She states that she has had this before. Her episodes of contractures have been witnessed by myself and nursing. She does have spinal stenosis however, this would not explain her upper extremity contractures. The patient does have a certain degree of histrionic behavior. If her complaint is truly organic she could benefit from outpatient evaluation by Neurology 3. Right Hip Severe Osteoarthritis -Tylenol 650 mg q4h prn -Patient will have follow-up with orthopedics 4. DMII -Sliding scale insulin -Consistent carbohydrate diet -A1c of 6.2 5. HTN -Continue metorpolol, furosemide, and lisinopril 6. Hyperlipidemia -Patient may benefit from statin as outpatient 7. DVT prophylaxis -Lovenox 40 mg DISPOSITION: ARU placement likely 11/25/18 A-FIB/CHADSVASC A-FIB History Current/History of A-Fib/PAF?: No VS, I&O, 24H, Fishbone Vital Signs/I&O Vital Signs Date Time Temp Pulse Resp B/P (MAP) Pulse Ox O2 Delivery O2 Flow Rate FiO2 11/23/18 08:41 77 135/76 11/23/18 06:00 97.1 18 98 I&O- Last 24 Hours up to 6 AM 11/23/18 06:00 Intake Total 2560 ml Output Total 2800 ml Balance -240 ml Laboratory Data 24H LABS Laboratory Tests 2 11/22/18 17:02: Bedside Glucose (Misc Panel) 108 11/22/18 21:30: Bedside Glucose (Misc Panel) 153H 11/23/18 06:32: Nucleated Red Blood Cells % (auto) 0.0, Anion Gap 2L, Glomerular Filtration Rate > 60.0, Blood Urea Nitrogen 18, Creatinine 0.79, Sodium Level 137, Potassium L evel 4.4, Chloride Level 104, Carbon Dioxide Level 31, Calcium Level 9.5 11/23/18 11:09: Bedside Glucose (Misc Panel) 142H CBC/BMP Laboratory Tests 11/23/18 06:32 Red Blood Count 3.87 L, Mean Corpuscular Volume 97.7 H, Mean Corpuscular Hemoglobin 32.6, Mean Corpuscular Hemoglobin Concent 33.3, Red Cell Distribution Width 14.0, Calcium Level 9.5 GME ATTESTATION GME ATTESTATION My faculty preceptor for this patient encounter was physically present during the encounter and was fully available. All aspects of the patient interview, examination, medical decision making process, and medical care plan development were reviewed and approved by the faculty preceptor. The faculty preceptor is aware and concurs with the plan as stated in the body of this note and will attest to such by his/her cosignature. ATTENDING NOTE I, Nat Laws, have both independently examined this patient as well as review ed the documentation. I have discussed in detail with the resident the findings and plan of treatment as documented by the resident. I agree with their findings and treatment plan. I will continue to follow the patient and offer further guidance to the patients care as necessary during this hospital stay. JAMAL SOTO DO November 23, 2018 12:36 NAT LAWS MD November 23, 2018 14:38
[2018-11-23 14:00] VITALS: BP 134/66
[2018-11-23] MEDS: GABAPENTIN 100 MG CAP PO SCH ×2 (15:28→22:55)
[2018-11-23] MEDS: MYRBETRIQ 25 MG PO SCH (21:00)
[2018-11-23] MEDS: LISINOPRIL *2.5 MG* TAB PO SCH (21:46)
[2018-11-23 22:00] VITALS: BP 134/77
[2018-11-24] MEDS: PERCOCET 5MG/325MG TAB PO PRN (03:36)
[2018-11-24 06:00] VITALS: BP 130/75
[2018-11-24 06:45] LABS: HEMATOCRIT 43.4 % (36.0-47.0); HEMOGLOBIN 14.2 g/dl (12.0-15.5); MEAN CORPUSCULAR HEMOGLOBIN 32.3 pg (27.0-33.0); MEAN CORPUSCULAR HGB CONC 32.7 g/dl (32.0-36.5); MEAN CORPUSCULAR VOLUME 98.9 fl (80.0-96.0); PLATELET COUNT, AUTOMATED 240 10^3/uL (150-450); RED BLOOD COUNT 4.39 10^6/uL (4.00-5.40)
[2018-11-24 07:06] LABS: BLOOD UREA NITROGEN 17 MG/DL (7-18); CALCIUM LEVEL 9.8 MG/DL (8.8-10.2); CARBON DIOXIDE LEVEL 28 MEQ/L (21-32); CHLORIDE LEVEL 103 MEQ/L (98-107); GLOMERULAR FILTRATION RATE > 60.0 (>39); GLUCOSE, FASTING 117 MG/DL (70-100); POTASSIUM SERUM 4.2 MEQ/L (3.5-5.1); SODIUM LEVEL 138 MEQ/L (136-145)
[2018-11-24] MEDS: OSTEO BIFLEX PO SCH (08:12)
[2018-11-24] MEDS: CHLORDIAZEPOXIDE 5 MG PO SCH (08:12)
[2018-11-24] MEDS: ENOXAPARIN 40 MG/0.4 ML SYRINGE (J1650) SC SCH (08:13)
[2018-11-24] MEDS: CALCIUM/VITAMIN D 500 MG TAB PO SCH (08:13)
[2018-11-24] MEDS: HumaLOG INSULIN (NovoLOG) PER UNIT SC SCH ×4 (08:13→20:50)
[2018-11-24] MEDS: DULoxetine 20 MG CAP (CYMBALTA) PO SCH (08:13)
[2018-11-24] MEDS: METOPROLOL SUCC *XL* 12.5MG PER 1/2 TAB (TopROL *XL*) PO SCH (08:14)
[2018-11-24] MEDS: POTASSIUM CHLORIDE 10 MEQ SR TABLET PO SCH (08:14)
[2018-11-24] MEDS: MULTIVITAMINS/MINERALS THERAP 1 TAB PO SCH (08:14)
[2018-11-24] MEDS: VITAMIN D 1,000 INTERNATIONAL UNITS TABLET PO SCH (08:14)
[2018-11-24] MEDS: FUROSEMIDE 20 MG TAB PO SCH (08:14)
[2018-11-24 14:00] VITALS: BP 103/59
--- NOTE | 2018-11-24 15:22 | IPNPDOC ---
Text Note Date of Service The patient was seen on 11/24/18. NOTE Subjective: Patient is a 78-year-old female with a PMHx of HTN, DLP, IDDM2, Severe Osteoarthritis of Hip (R>L), Severe spinal stenosis and Muscle cramping who presented to the ER with complaints of inability to move her R leg. Patient did not experience any incontinence of bowel / bladder. Orthopedic surgery was consulted and recommended conservative management and pain management. Pain management had initially recommended joint injections - but patient refused. Patient was seen and examined at the bedside. Patient has been progressing with physical therapy. Currently denies chest pain, shortness of breath or palpitations. Denies nausea, vomiting, abdominal pain, constipation or diarrhea. Objective: Vitals (See below) General: Lying in bed, no acute distress, comfortable, AAOx3 HEENT: NC, AT CVS: RRR, +S1S2 Lungs: Fair air entry b/l, no appreciable wheezing / rhonchi / rales Abdomen: Soft, ND, NT Extremities: No appreciable LE edema, - Calf tenderness Neuro: 5/5 at LLE, 5/5 at R foot, 3-4/5 at R Hip Assessment and plan: Severe spinal stenosis at L2-L3 with RLE weakness / Lumbar radiculopathy - Clinically has noted significant improvement in her symptoms - No loss of control of her bowel or bladder - MRI Lumbar 5/4: Multilevel disc bulging and hypertrophic change of ligamentum flavum and posterior facets. Severe spinal stenosis at L2-3 is unchanged. There is moderate spinal stenosis at L3-4. No acute findings. - XR Knee 5/4: Moderate degenerative changes. - XR Hip 5/4: Severe arthritic changes. - Orthopedic surgery in pain management on consultation; patient has refused joint injections by pain management - Will continue with physical therapy; possible transition to ARU on 11/25/18 Bilateral arm and leg body cramps - Was witnessed by other nursing staff / residents before - does not appear to be unintentional muscle cramping on observation - Will suggest outpatient Neurology referral if persistent Right Hip Severe Osteoarthritis - c/w Tylenol PRN HTN - BP appears well controlled - c/w Lisinopril, Furosemide, Metoprolol DLP - Currently not on statin therapy DM2 - A1c of 6.2% - c/w ISS Depression - c/w Duloxetine DVT prophylaxis - c/w Lovenox Disposition: - Likely ARU placement on 11/25/18 VS,Nir, I+O VS, Radhae, I+O Laboratory Tests 11/24/18 06:33 Red Blood Count 4.39, Mean Corpuscular Volume 98.9 H, Mean Corpuscular Hemoglobin 32.3, Mean Corpuscular Hemoglobin Concent 32.7, Red Cell Distribution Width 13.7, Calcium Level 9.8 Vital Signs Date Time Temp Pulse Resp B/P (MAP) Pulse Ox O2 Delivery O2 Flow Rate FiO2 11/24/18 14:00 97.8 78 18 103/59 (74 96 I&O- Last 24 Hours up to 6 AM 11/24/18 06:00 Intake Total 3060 ml Output Total 4275 ml Balance -1215 ml HIWOT LAWS MD November 24, 2018 15:22
[2018-11-24] MEDS: GABAPENTIN 100 MG CAP PO SCH ×2 (16:22→23:11)
[2018-11-24] MEDS: LISINOPRIL *2.5 MG* TAB PO SCH (20:48)
[2018-11-24] MEDS: MYRBETRIQ 25 MG PO SCH (20:49)
[2018-11-24 22:00] VITALS: BP 120/60
[2018-11-25] MEDS: NYSTATIN 100,000 UNITS/GM TOPICAL PWD 15 GM TOP PRN (00:33)
[2018-11-25 06:00] VITALS: BP 130/66
[2018-11-25 06:36] LABS: HEMATOCRIT 37.4 % (36.0-47.0); HEMOGLOBIN 12.3 g/dl (12.0-15.5); MEAN CORPUSCULAR HEMOGLOBIN 32.9 pg (27.0-33.0); MEAN CORPUSCULAR HGB CONC 32.9 g/dl (32.0-36.5); PLATELET COUNT, AUTOMATED 210 10^3/uL (150-450); RED BLOOD COUNT 3.74 10^6/uL (4.00-5.40); WHITE BLOOD COUNT 6.3 10^3/uL (4.0-10.0)
[2018-11-25 06:45] LABS: BLOOD UREA NITROGEN 19 MG/DL (7-18); CARBON DIOXIDE LEVEL 29 MEQ/L (21-32); CHLORIDE LEVEL 104 MEQ/L (98-107); GLOMERULAR FILTRATION RATE > 60.0 (>39); GLUCOSE, FASTING 100 MG/DL (70-100); POTASSIUM SERUM 3.9 MEQ/L (3.5-5.1); SODIUM LEVEL 138 MEQ/L (136-145)
[2018-11-25] MEDS: HumaLOG INSULIN (NovoLOG) PER UNIT SC SCH ×4 (07:30→21:00)
[2018-11-25] MEDS: CHLORDIAZEPOXIDE 5 MG PO SCH (08:10)
[2018-11-25] MEDS: CALCIUM/VITAMIN D 500 MG TAB PO SCH (08:10)
[2018-11-25] MEDS: VITAMIN D 1,000 INTERNATIONAL UNITS TABLET PO SCH (08:10)
[2018-11-25] MEDS: OSTEO BIFLEX PO SCH (08:10)
[2018-11-25] MEDS: MULTIVITAMINS/MINERALS THERAP 1 TAB PO SCH (08:11)
[2018-11-25] MEDS: ENOXAPARIN 40 MG/0.4 ML SYRINGE (J1650) SC SCH (08:11)
[2018-11-25] MEDS: POTASSIUM CHLORIDE 10 MEQ SR TABLET PO SCH (08:11)
[2018-11-25] MEDS: FUROSEMIDE 20 MG TAB PO SCH (08:11)
[2018-11-25] MEDS: METOPROLOL SUCC *XL* 12.5MG PER 1/2 TAB (TopROL *XL*) PO SCH (08:11)
[2018-11-25] MEDS: DULoxetine 20 MG CAP (CYMBALTA) PO SCH (08:12)
--- NOTE | 2018-11-25 13:13 | IPNPDOC ---
Date Seen The patient was seen on 11/25/18. Progress Note SUBJECTIVE: Patient was seen and examined this morning. She currently has no new complaints and states that she did not have much pain last night. She is continuing to work with physical therapy. She did not qualify with ARU and will likely need outpatient rehab. OBJECTIVE PHYSICAL EXAMINATION: VITAL SIGNS: Please see below. GENERAL: Awake, alert, and oriented. Appears in no acute distress. Sitting comfortably in chair HEENT: Atruamatic normocephalic. Eyes are nonicteric. Trachea is midline. CARDIOVASCULAR: Normal rate and rhythm with occasional ectopic beats. No clicks rubs or murmurs RESPIRATORY: Clear vesicular breath sounds with good respiratory effort. No wheezes, rhonci, or rales. ABDOMINAL: Soft, nondistended. Nontender to palpation throughout. Positive bowel sounds EXTREMITIES: No edema. Full and equal pulses in bilateral upper and lower extremities. NEUROLOGICAL: No focal neurological deficits PSYCHOLOGICAL: Histrionic in character. Affect appears appropriate. Mood is appropriate LABORATORY DATA, IMAGING STUDIES, MICROBIOLOGY: Please see below. DVT prophylaxis ordered?: Lovenox ASSESSMENT AND PLAN: Patient is a 78 year old female who presented to the [facility] ER after waking in the morning with the inability to move her right leg. Patient had presented with weakness. She had denied any bowel or bladder incontinence did not demonstrate any left-sided weakness. Patient was found to have severe spinal stenosis. [place] [facility] and hospitalist team were consulted. PROBLEMS: 1. SEVERE spinal stenosis L2-L3, with right LE weakness/ lumbar radiculopathy -Patient denies any bowel or bladder incontinence -Patient has had pain management consultation. She has refused any steroid injections. She states that her pain is currently mostly in her hips and knees. -Patient has continued with PT/OT. -Patient has not qualified for ARU. Will likely have outpatient rehab on Sunday11/27/18 2. Bilateral arm and leg body cramps -Patient has complained of bilateral arm and muscle cramping that causes her to have contractures and then "throws" her. She states that she has had this before. Her episodes of contractures have been witnessed by myself and nursing. She does have spinal stenosis however, this would not explain her upper extremity contractures. The patient does have a certain degree of histrionic behavior. If her complaint is truly organic she could benefit from outpatient evaluation by Neurology -Denies having cramps today 3. Right Hip Severe Osteoarthritis -Tylenol 650 mg q4h prn -Patient will have follow-up with orthopedics 4. DMII -Sliding scale insulin -Consistent carbohydrate diet -A1c of 6.2 5. HTN -Continue metorpolol, furosemide, and lisinopril 6. Hyperlipidemia -Patient may benefit from statin as outpatient 7. DVT prophylaxis -Lovenox 40 mg DISPOSITION: Patient did not qualify for ARU placement. Will have outpatient rehab likely 11/27/18 A-FIB/CHADSVASC A-FIB History Current/History of A-Fib/PAF?: No VS, I&O, 24H, Fishbone Vital Signs/I&O Vital Signs Date Time Temp Pulse Resp B/P (MAP) Pulse Ox O2 Delivery O2 Flow Rate FiO2 11/25/18 08:11 66 130/66 11/25/18 06:00 97.2 16 100 I&O- Last 24 Hours up to 6 AM 11/25/18 06:00 Intake Total 2080 ml Output Total 1100 ml Balance 980 ml Laboratory Data 24H LABS Laboratory Tests 2 11/24/18 16:18: Bedside Glucose (Misc Panel) 112H 11/24/18 19:31: Bedside Glucose (Misc Panel) 163H 11/25/18 05:50: Nucleated Red Blood Cells % (auto) 0.0, Anion Gap 5L, Glomerular Filtration Rate > 60.0, Blood Urea Nitrogen 19H, Creatinine 0.80, Sodium Level 138, Potassium Level 3.9, Chloride Level 104, Carbon Dioxide Level 29, Calcium Level 9.0 11/25/18 11:42: Bedside Glucose (Misc Panel) 91 CBC/BMP Laboratory Tests 11/25/18 05:50 Red Blood Count 3.74 L, Mean Corpuscular Volume 100.0 H, Mean Corpuscular Hemoglobin 32.9, Mean Corpuscular Hemoglobin Concent 32.9, Red Cell Distribution Width 13.9, Calcium Level 9.0 GME ATTESTATION GME ATTESTATION My faculty preceptor for this patient encounter was physically present during the encounter and was fully available. All aspects of the patient interview, examination, medical decision making process, and medical care plan development were reviewed and approved by the faculty preceptor. The faculty preceptor is aware and concurs with the plan as stated in the body of this note and will attest to such by his/her cosignature. JAMAL SOTO DO November 25, 2018 13:13
[2018-11-25 14:00] VITALS: BP 112/57
[2018-11-25] MEDS: GABAPENTIN 100 MG CAP PO SCH ×2 (15:17→23:19)
[2018-11-25] MEDS: LISINOPRIL *2.5 MG* TAB PO SCH (21:26)
[2018-11-25] MEDS: MYRBETRIQ 25 MG PO SCH (21:28)
[2018-11-25 22:00] VITALS: BP 159/71
[2018-11-26 06:00] VITALS: BP 164/69
[2018-11-26 06:30] LABS: HEMATOCRIT 41.2 % (36.0-47.0); HEMOGLOBIN 13.5 g/dl (12.0-15.5); MEAN CORPUSCULAR HEMOGLOBIN 32.2 pg (27.0-33.0); MEAN CORPUSCULAR HGB CONC 32.8 g/dl (32.0-36.5); MEAN CORPUSCULAR VOLUME 98.3 fl (80.0-96.0); PLATELET COUNT, AUTOMATED 235 10^3/uL (150-450); RED BLOOD COUNT 4.19 10^6/uL (4.00-5.40)
[2018-11-26 06:52] LABS: BLOOD UREA NITROGEN 17 MG/DL (7-18); CALCIUM LEVEL 9.4 MG/DL (8.8-10.2); CARBON DIOXIDE LEVEL 28 MEQ/L (21-32); CHLORIDE LEVEL 105 MEQ/L (98-107); CREATININE FOR GFR 0.74 MG/DL (0.55-1.30); GLOMERULAR FILTRATION RATE > 60.0 (>39); GLUCOSE, FASTING 108 MG/DL (70-100); POTASSIUM SERUM 3.9 MEQ/L (3.5-5.1); SODIUM LEVEL 139 MEQ/L (136-145)
[2018-11-26] MEDS: HumaLOG INSULIN (NovoLOG) PER UNIT SC SCH (07:30)
[2018-11-26] MEDS: OSTEO BIFLEX PO SCH (09:05)
[2018-11-26 09:06] VITALS: BP 164/69
[2018-11-26] MEDS: FUROSEMIDE 20 MG TAB PO SCH (09:06)
[2018-11-26] MEDS: MULTIVITAMINS/MINERALS THERAP 1 TAB PO SCH (09:06)
[2018-11-26] MEDS: CHLORDIAZEPOXIDE 5 MG PO SCH (09:06)
[2018-11-26] MEDS: CALCIUM/VITAMIN D 500 MG TAB PO SCH (09:06)
[2018-11-26] MEDS: DULoxetine 20 MG CAP (CYMBALTA) PO SCH (09:06)
[2018-11-26] MEDS: METOPROLOL SUCC *XL* 12.5MG PER 1/2 TAB (TopROL *XL*) PO SCH (09:06)
[2018-11-26] MEDS: ENOXAPARIN 40 MG/0.4 ML SYRINGE (J1650) SC SCH (09:07)
[2018-11-26] MEDS: VITAMIN D 1,000 INTERNATIONAL UNITS TABLET PO SCH (09:07)
[2018-11-26] MEDS: POTASSIUM CHLORIDE 10 MEQ SR TABLET PO SCH (09:07)
--- NOTE | 2018-11-26 16:41 | DS.PDOC ---
Discharge Summary General Date of Admission November 16, 2018 at 13:38 Date of Discharge 11/26/18 Attending Physician: JAVON MOSQUEDA MD Specialist/Consultants Involve: Mary Fernandez Discharge Summary PROCEDURES PERFORMED DURING STAY: [None]. ADMITTING DIAGNOSES: 1. Right Leg weakness 2/2 spinal stenosis 2. Right hip severe osteoarthritis 3. DMII 4. HTN 5. Hyperlipidemia DISCHARGE DIAGNOSES: 1. Severe spinal stenosis L2-L3 2. Right Hip Severe Osteoarthritis 3. DMII 4. HTN 5. Hyperlipidemia COMPLICATIONS/CHIEF COMPLAINT: Spinal Stenosis Of Lumbar Region Muliple Levels. HISTORY OF PRESENT ILLNESS: Patient is a 78 year old female iwth a past medical history significant for spinal stenosis, neuropathy, right hip pain secondary to osteoarthritis, hyperlipidemia, GERD, and depression who presented to the [facility] ER after waking up unable to move her right leg. Patient had stated that her right leg continued to be weak upon presentation in the ER. She denied any bowel or bladder incontinence and did not demonstrate any left-sided weakness. The patient received an MRI in the ER which demonstrated multilevel disc bulging and hypertrophic change of the ligamentum flavum and posterior facets. Severe spinal stenosis at L2-L3 and moderate spinal stenosis at L3-L4 but no acute findings. The patient was admitted for further evaluation and management HOSPITAL COURSE: Once admitted the patient was seen by Orthopedic surgery regarding her spinal stenosis with recommendations to follow-up after discharge for possible surgical vs medical management of her pain. The patient received a pain management consultation to optimize the management of her pain and discomfort. She continued to work with physical therapy with plan for discharge to acute or subacute rehabilitation. The patient did have several episodes of cramping/neuropathic pain which appeared to be controlled with gabapentin. She qualified for short term rehabilitation at the [facility] and the patient was discharged with plans to follow up with her PCP upon discharge from rehab. DISCHARGE MEDICATIONS: Please see below. ALLERGIES: Please see below. PHYSICAL EXAMINATION ON DISCHARGE: VITAL SIGNS: Please see below. GENERAL: Awake, alert, oriented. Appears in no acute distress. Sitting comfortably in chair eating breakfast HEENT: Atrumatic, normocephalic. Eyes are nonicteric. Trachea is midline. Mucous membranes are pink and moist NECK: No palpable cervical lymphadenopathy CARDIOVASCULAR EXAMINATION: Normal S1, S2. Regular rate and rhythm. No clicks, rubs, or mumurs. RESPIRATORY EXAMINATION: Clear vesicular breath sounds bilaterally with good respiratory effort. No wheezes, rhonci, or rales ABDOMINAL EXAMINATION: Obese, Soft, nondistended. Nontender to palpation in all 4 quadrants. Positive bowel sounds throughout EXTREMITIES: No edema. 5/5 muscle strength testing in bilateral upper and lower extremities. Full and equal pulses in upper and lower extremities bilaterally. SKIN: No rashes or lesions NEUROLOGICAL EXAMINATION: No focal neurological deficits noted PSYCHIATRIC EXAMINATION: Mood and affect appear appropriate LABORATORY DATA: Please see below. IMAGING: MRI LUMBAR SPINE: TECHNIQUE: Multiple sequences obtained in the sagittal and axial planes. Comparison made with prior study 10/19/2017 at [facility]. There is no compression fracture. There is slight anterior listhesis of L3 on L4 and L4 on L5, with slight retrolisthesis of L5 on S1. These findings are stable. There is diffuse loss of water signal and disc degeneration with mild disc space narrowing at all levels. There is a more moderate degree of disc space narrowing at L5-S1. All of these findings are stable. The conus is unremarkable. At L1-2 there is mild diffuse disc bulging with hypertrophy of ligamentum flavum and articulating facets. There is minimal central canal stenosis. There is no neural foraminal narrowing. There is disc bulging at L2-3 with hypertrophy of the ligamentum flavum and posterior facets. There is severe spinal stenosis at this level. There is no neural foraminal narrowing. At L3-4 disc bulging is present with hypertrophy of ligamentum flavum and posterior facets. There is moderate spinal stenosis. There is no neural foraminal narrowing. At L4-5 there is diffuse disc bulging with a small right paracentral disc protrusion unchanged. There is hypertrophy of ligamentum flavum and posterior facets. There is mild spinal stenosis. There does appear to be neural foraminal narrowing at this level. At L5-S1 there is mild diffuse disc bulging with hypertrophy of the ligamentum flava in the posterior facets. There is very mild compression of the thecal sac. There is no neural foraminal narrowing. IMPRESSION: Multilevel disc bulging and hypertrophic change of ligamentum flavum and posterior facets. Severe spinal stenosis at L2-3 is unchanged. There is moderate spinal stenosis at L3-4. No acute findings. Electronically Signed by Kishan Harmon MD 11/16/2018 03:10 P RIGHT KNEE, TWO VIEWS: AP and lateral views of the right knee are performed. There is no acute fracture or dislocation. There is moderate medial joint space narrowing with subchondral sclerosis. There is moderate diffuse spurring. There may be a small joint effusion. Vascular calcifications are seen posteriorly. IMPRESSION: Moderate degenerative changes. Electronically Signed by Kishan Harmon MD 11/17/2018 11:27 A RIGHT HIP, TWO VIEWS: Two views of the right hip are performed. There is severe joint space narrowing with erosive change diffusely of the acetabulum, and deepening of the acetabul um. There is extensive subchondral sclerosis and cystic change on both sides of the joint. There is moderate spurring at the margins of the joint. There is mild sclerosis at the pubic symphysis. IMPRESSION: Severe arthritic changes. Electronically Signed by Kishan Harmon MD 11/17/2018 11:24 A PROGNOSIS: GOOD ACTIVITY: [As tolerated]. DIET: As tolerated DISCHARGE PLAN: Patient is to be discharged to the [facility] for short term rehab. She is to continue her current medications. She is to follow-up outpatient with her primary care provider upon completion of her rehab DISPOSITION: [facility]. DISCHARGE CONDITION: [Stable]. TIME SPENT ON DISCHARGE: Greater than 40 minutes. Vital Signs/I&Os Vital Signs Date Time Temp Pulse Resp B/P (MAP) Pulse Ox O2 Delivery O2 Flow Rate FiO2 11/26/18 09:06 79 164/69 11/26/18 06:00 97.4 19 97 I&O- Last 24 Hours up to 6 AM 11/26/18 06:00 Intake Total 1980 ml Output Total 1250 ml Balance 730 ml Laboratory Data Labs 24H Laboratory Tests 2 11/25/18 17:05: Bedside Glucose (Misc Panel) 121H 11/25/18 20:02: Bedside Glucose (Misc Panel) 248H 11/26/18 06:09: Nucleated Red Blood Cells % (auto) 0.0, Anion Gap 6L, Glomerular Filtration Rate > 60.0, Blood Urea Nitrogen 17, Creatinine 0.74, Sodium Level 139, Potassium Level 3.9, Chloride Level 105, Carbon Dioxide Level 28, Calcium Level 9.4 CBC/BMP Laboratory Tests 11/26/18 06:09 Red Blood Count 4.19, Mean Corpuscular Volume 98.3 H, Mean Corpuscular Hemoglobin 32.2, Mean Corpuscular Hemoglobin Concent 32.8, Red Cell Distribution Width 13.7, Calcium Level 9.4 FSBS Laboratory Tests Test 11/25/18 17:05 11/25/18 20:02 Range/Units Bedside Glucose (Misc Panel) 121 248 83-110 MG/DL Discharge Medications Scheduled Aspirin (Aspir 81) 81 Mg Tablet.dr, 81 MG PO DAILY, (Reported) Calcium Carbonate/Vitamin D3 (Calcium 600-Vit D3 400 Tablet) 1 Each Tablet, 1 TAB PO DAILY, (Reported) Chlordiazepoxide (Chlordiazepoxide HCl) 5 Mg Capsule, 5 MG PO DAILY, (Reported) Cholecalciferol (Vitamin D3) (Vitamin D3) 1,000 Unit Tablet, 1,000 UNIT PO DAILY, (Reported) Duloxetine Hcl (Duloxetine HCl) 20 Mg Capsule.dr, 20 MG PO DAILY, (Reported) Furosemide (Furosemide) 20 Mg Tablet, 20 MG PO QAM, (Reported) Gabapentin (Gabapentin) 100 Mg Capsule, 100 MG PO BID, (Reported) TAKES AT 1500/2300 Glucosamine/D3/Boswellia Renita (Osteo Bi-Flex Tablet) 1 Each Tablet, 1 EACH PO DAILY, (Reported) Lisinopril (Lisinopril) 2.5 Mg Tablet, 2.5 MG PO QPM, (Reported) Metformin HCl (Metformin HCl) 500 Mg Tablet, 250 MG PO BID, (Reported) Metoprolol Succinate (Metoprolol Succinate) 25 Mg Tab.er.24h, 12.5 MG PO DAILY, (Reported) Mirabegron (Myrbetriq) 25 Mg Tab.er.24h, 25 MG PO QHS, (Reported) Multivit-Min/FA/Lycopen/Lutein (Centrum Silver Tablet) 1 Each Tablet, 1 TAB PO DAILY, (Reported) Potassium Chloride (Potassium Chloride) 10 Meq Tab.er.prt, 10 MEQ PO DAILY, (Reported) Scheduled PRN Chlordiazepoxide (Chlordiazepoxide HCl) 5 Mg Capsule, 5 MG PO BID PRN for ANXIETY, (Reported) Allergies Coded Allergies: Penicillins (Verified Allergy, Unknown, ALLERGY A CHILD, UNKOWN REACTION, 11/16/18) GME ATTESTATION GME ATTESTATION My faculty preceptor for this patient encounter was physically present during the encounter and was fully available. All aspects of the patient interview, examination, medical decision making process, and medical care plan development were reviewed and approved by the faculty preceptor. The faculty preceptor is aware and concurs with the plan as stated in the body of this note and will attest to such by his/her cosignature. JAMAL SOTO DO November 26, 2018 16:41
== END 2018-11-26 12:50 | DRG 552 ==
LOC: M ED 06:26 → M ED INP 13:38 → M MS4PR 16:50 → M MS5PR 11-17 14:35
PROVIDERS: ADMIT General Practice; ATTEND Internal Medicine
DX: M48.061 Spinal stenosis, lumbar region without neurogenic claudication (principal); E11.9 Type 2 diabetes mellitus without complications; I10 Essential (primary) hypertension; E78.5 Hyperlipidemia, unspecified; M16.11 Unilateral primary osteoarthritis, right hip; K21.9 Gastro-esophageal reflux disease without esophagitis; F32.9 Major depressive disorder, single episode, unspecified; Z79.899 Other long term (current) drug therapy; Z79.82 Long term (current) use of aspirin; Z88.0 Allergy status to penicillin; M81.0 Age-related osteoporosis without current pathological fracture; E87.6 Hypokalemia; Z96.642 Presence of left artificial hip joint; E55.9 Vitamin D deficiency, unspecified

== ENCOUNTER → 2018-11-29 | Outpatient (REF) ==
[~2018-11-29] MED LIST changes: +ASPI81TA85 PO; +CALC1TAB63 PO; +CENT1TAB PO; +CHLOR5CA PO; +D31000TA PO; +FURO20TA2 PO; +GABA-1171 PO; +GLUC1TAB58 PO; +METF500T13 PO; +METO1TAB32 PO; +MYRB25TA PO; +POTA10TA17 PO
[2018-11-29 10:20] LABS: BLOOD UREA NITROGEN 18 MG/DL (7-18); CALCIUM LEVEL 10.3 MG/DL (8.8-10.2); CARBON DIOXIDE LEVEL 29 MEQ/L (21-32); CHLORIDE LEVEL 102 MEQ/L (98-107); CREATININE FOR GFR 0.91 MG/DL (0.55-1.30); GLOMERULAR FILTRATION RATE > 60.0 (>39); GLUCOSE, FASTING 214 MG/DL (70-100); NT-PRO BNP 113 PG/ML (<450); POTASSIUM SERUM 4.3 MEQ/L (3.5-5.1); SODIUM LEVEL 137 MEQ/L (136-145)
== END ==
LOC: SKLAB2 09:13
PROVIDERS: ATTEND Internal Medicine
DX: R25.2 Cramp and spasm (principal)

== ENCOUNTER → 2018-12-02 | Outpatient (REF) ==
[2018-12-02 08:25] LABS: HEMATOCRIT 37.9 % (36.0-47.0); HEMOGLOBIN 12.5 g/dl (12.0-15.5); MEAN CORPUSCULAR HEMOGLOBIN 33.1 pg (27.0-33.0); MEAN CORPUSCULAR VOLUME 100.3 fl (80.0-96.0); PLATELET COUNT, AUTOMATED 223 10^3/uL (150-450); RED BLOOD COUNT 3.78 10^6/uL (4.00-5.40); WHITE BLOOD COUNT 7.3 10^3/uL (4.0-10.0)
[2018-12-02 08:46] LABS: ALBUMIN 3.5 GM/DL (3.2-5.2); ALT/SGPT 21 U/L (12-78); BILIRUBIN,TOTAL 0.5 MG/DL (0.2-1.0); BLOOD UREA NITROGEN 20 MG/DL (7-18); CARBON DIOXIDE LEVEL 32 MEQ/L (21-32); CHLORIDE LEVEL 101 MEQ/L (98-107); GLOMERULAR FILTRATION RATE > 60.0 (>39); GLUCOSE, FASTING 94 MG/DL (70-100); POTASSIUM SERUM 4.3 MEQ/L (3.5-5.1); SODIUM LEVEL 138 MEQ/L (136-145); TOTAL PROTEIN 6.9 GM/DL (6.4-8.2)
[2018-12-02 10:07] LABS: HEMOGLOBIN A1c 6.3 %
== END ==
LOC: SKLAB2 07:00
PROVIDERS: ATTEND Internal Medicine
DX: I10 Essential (primary) hypertension (principal); E11.9 Type 2 diabetes mellitus without complications

== ENCOUNTER → 2020-03-09 | Outpatient (REF) | payer MEDICARE ==
[~2020-03-09] MED LIST changes: -ASPI81TA85 PO; +ASPI81TA86 PO; -DULO1CAP PO; +DULO1CAP4 PO; -LISI-1046 PO; +LISI2.5T2 PO
== END ==
LOC: M LAB REF 12:03
PROVIDERS: ATTEND Physician Assistant
DX: C44.622 Squamous cell carcinoma of skin of right upper limb, including shoulder (principal)
CPT/HCPCS: 11104; 88305; G0463

== ENCOUNTER → 2020-05-28 | Outpatient (CLI) | payer MEDICARE ==
[~2020-05-28] MED LIST changes: +D31000TA2 PO; +ECOT81TA5 PO
[2020-05-28 11:36] LABS: BASO # 0.1 10^3/uL (0.0-0.2); BASO % 0.8 % (0.0-1.0); EOS # 0.3 10^3/uL (0.0-0.5); EOS % 3.2 % (0.0-3.0); HEMATOCRIT 41.5 % (36.0-47.0); HEMOGLOBIN 13.6 g/dl (12.0-15.5); LYMPH # 1.1 10^3/uL (1.5-5.0); LYMPH % 12.2 % (24.0-44.0); MEAN CORPUSCULAR HEMOGLOBIN 32.2 pg (27.0-33.0); MEAN CORPUSCULAR HGB CONC 32.8 g/dl (32.0-36.5); MEAN CORPUSCULAR VOLUME 98.1 fl (80.0-96.0); MONO # 0.8 10^3/uL (0.0-0.8); MONO % 8.4 % (0.0-5.0); NEUTROPHILS # 6.9 10^3/uL (1.5-8.5); PLATELET COUNT, AUTOMATED 266 10^3/uL (150-450); RED BLOOD COUNT 4.23 10^6/uL (4.00-5.40); WHITE BLOOD COUNT 9.2 10^3/uL (4.0-10.0)
[2020-05-28 11:48] LABS: INR 0.96
[2020-05-28 11:49] LABS: PARTIAL THROMBOPLASTIN TIME 26.9 SECONDS (24.2-38.5)
[2020-05-28 12:06] LABS: BLOOD UREA NITROGEN 17 MG/DL (7-18); CALCIUM LEVEL 10.3 MG/DL (8.8-10.2); CARBON DIOXIDE LEVEL 29 MEQ/L (21-32); CHLORIDE LEVEL 101 MEQ/L (98-107); CREATININE FOR GFR 0.84 MG/DL (0.55-1.30); GLOMERULAR FILTRATION RATE > 60.0 (>39); GLUCOSE, FASTING 133 MG/DL (70-100); POTASSIUM SERUM 4.1 MEQ/L (3.5-5.1); SODIUM LEVEL 138 MEQ/L (136-145)
[2020-05-28 13:03] LABS: HEMOGLOBIN A1c 6.7 %
--- NOTE | 2020-05-28 13:31 | REP ---
INDICATION: SPINAL STENOSIS L/S SPINE W/NEUROGENIC CLAUDICATION. COMPARISON: 01/23/2012. TECHNIQUE: AP and lateral views were obtained. FINDINGS: The superior mediastinal structures are midline. The cardiac silhouette is unremarkable in size, shape, and position. The diaphragmatic surfaces of the lungs are regular, and the costophrenic angles are clear. The pulmonary young are clear. The imaged osseous structures are intact. The technique utilized in obtaining the radiograph has magnified the cardiac silhouette and attenuated the interstitial markings. Advanced degenerative changes seen involving the right shoulder. Calcifications are seen in the soft tissue superimposed over the imaged portion of the left shoulder. Chronic changes are again seen involving the imaged portion of the spine. IMPRESSION: There is no acute cardiopulmonary disease. Other findings as described above. <Electronically signed by Stoney Reed > 05/28/20 [id number]
--- NOTE | 2020-05-28 15:40 | ECGEPIP ---
[facility] Test Date: 2020-05-28 Pat Name: SARA AGUILLON Department: Room: - Gender: Female Audio Visual Specialist: : [id number] Requested By: Demetrice Quinteros Order Number: [id number] Reading MD: Aditya Trivedi Measurements Intervals [place] Rate: 81 P: -34 NC: 183 QRS: 30 QRSD: 90 T: 24 QT: 356 QTc: 414 Interpretive Statements Normal sinus rhythm Low QRS voltage in the anterior leads Delayed anterior R-wave progression Nonspecific repolarization abnormalities Comparison tracing not available Electronically Signed on 05-28-2020 15:40:07 EST by Aditya Trivedi
== END ==
LOC: M LAB 10:40
PROVIDERS: ATTEND Family Medicine
DX: I12.9 Hypertensive chronic kidney disease with stage 1 through stage 4 chronic kidney disease, or unspecified chronic kidney disease (principal); L98.8 Other specified disorders of the skin and subcutaneous tissue; N18.2 Chronic kidney disease, stage 2 (mild); E11.22 Type 2 diabetes mellitus with diabetic chronic kidney disease; M48.061 Spinal stenosis, lumbar region without neurogenic claudication; M19.011 Primary osteoarthritis, right shoulder

== ENCOUNTER → 2020-06-02 | Outpatient (CLI) | payer MEDICARE, OTHER, BC | LOC: M LABSMTC 10:47 | PROVIDERS: ATTEND Anesthesiology | DX: Z01.812 Encounter for preprocedural laboratory examination (principal); Z20.828 Contact with and (suspected) exposure to other viral communicable diseases ==

== ENCOUNTER 2020-06-07 08:51 | Day surgery (SDC) | payer MEDICARE ==
[~2020-06-07] VITALS: Ht 154.9 cm; Wt 105.3 kg
[2020-06-07] VITALS (7 sets, daily range): BP systolic 102–130; BP diastolic 52–69
[~2020-06-07 08:51] MED LIST changes: +CIPROFLOXACIN 400 MG in IV 1 EA IV ONE; +LR 1,000 ML IV ONE
[2020-06-07] MEDS ORDERED: LIDOCAINE W/EPINEPHRINE 1% 20ML VIAL As Ordered ONE ×2 (10:44→12:16)
[2020-06-07] MEDS ORDERED: propofoL 200 MG/20 ML VIAL As Ordered ONE (11:00)
[2020-06-07] MEDS ORDERED: fentaNYL 100 MCG/2 ML INJECTION (J3010) As Ordered ONE ×2 (11:00→13:04)
[2020-06-07] MEDS ORDERED: ONDANSETRON 4MG/2ML VIAL As Ordered ONE (11:00)
[2020-06-07] MEDS ORDERED: LIDOCAINE 2% 100MG/5ML SDV (FOR ANES.) As Ordered ONE (11:00)
[2020-06-07] MEDS ORDERED: dexameTHASONE 4 MG/ML 1ML VIAL (J1100 PER 1MG) As Ordered ONE (11:00)
[2020-06-07] MEDS ORDERED: MIDAZOLAM INJ 2MG/2ML VIAL (J2250 PER 1MG) As Ordered ONE (11:01)
[2020-06-07] MEDS ORDERED: ROCURONIUM BROMIDE 50 MG/5 ML VIAL As Ordered ONE (11:39)
[2020-06-07] MEDS ORDERED: PHENYLephrine HCL 500 MCG/5 ML (100MCG/ML) SYRINGE (J2370) As Ordered ONE (12:21)
[2020-06-07] MEDS ORDERED: SUGAMMADEX SODIUM 500 MG/5 ML VIAL (BRIDION) As Ordered ONE (12:57)
[2020-06-07] MEDS ORDERED: ACETAMINOPHEN 1000MG 100ML IV BTL (OFIRMEV) (J0131 PER 10MG) As Ordered ONE (12:57)
[2020-06-07] MEDS ORDERED: POLYSPORIN TOPICAL OINTMENT 15GM As Ordered ONE (13:32)
[2020-06-07] MEDS ORDERED: LABETALOL 100MG/20ML VIAL As Ordered ONE (13:36)
--- NOTE | 2020-06-07 13:57 | ROOPDOC ---
[facility] Report Of Operation Report of Operation DATE OF PROCEDURE: 06/07/20 PREPROCEDURE DIAGNOSES: Cutaneous Squamous Cell Carcinoma. POSTPROCEDURE DIAGNOSES: Cutaneous Squamous Cell Carcinoma PROCEDURE: Excision and Split Thickness Skin Graft SURGEON: Clive Arevalo MD MEAT GRADING MACHINE OPERATOR: Stefani, ANESTHESIA: LMA. ESTIMATED BLOOD LOSS: Approximately 20 mL. COMPLICATIONS: None. REMARKS: Ms. Whitaker tumor is large and has been rapidly expanding. During the surgical excision, careful attention was made to remove with 5mm margins and into the subcutaneous fat just proximal to fascia. In the center of the lesion, there was a focal area of extension noted to be replicating squamous cells (skin cells) that appeared similar to a epidermal inclusion cyst, but is most certainly rapidly dividing SCC. It is likely this patient will retire adjuvant radiation. Pathology was called (Dr. Dela Cruz) to brief on the nature of this lesion. I called Ms. Padron' Lauro at [phone] given COVID-19 restrictions but he did not answer. I LMOM regarding the case and that Ms. Padron was doing well upon awakening. I left my personal cell phone number in the event they have any questions. PROCEDURE NOTE: Procedure: Excision. Tabor protocol was followed in compliance with [facility] standards. The site was marked and anesthetized with lidocaine 1% with epinephrine and patient was placed under general anesthesia. The area was then prepped and draped in a sterile fashion. The lesion was excised with margins as below. The lesion was or was not tagged as indicated below. Hemostasis was obtained using 30/30 blend on the conmed with fine tip. Estimated blood loss was 20mL. Once tissue was removed, then defect was then repaired as below. Tagging: [ ] No [ x ] 1200 Initial size: 11.0 x 13.2 cm Margins: 0.5cm Size of lesion with margins : 12.0 x 14.2cm . Procedure: Split Thickness Skin Graft. A template was made of the defect using sterile marker and Telfa. Using the template as a guide, a slightly oversized rectangle was marked on the right anterolateral thigh. The entire area was infiltrated with 1% Xylocaine with 1:100,000 Epinephrine. Once adequately numbed, the sheridan dermatome was used with a 4 inch guide was utilized to harvest .16 inch thickness split thickness skin graft. Vaseline and a bandage was applied to the donor site. The graft was then laid into place and trimmed. Jeb were used to secure the graft into place and 4-0 prolene tacking sutures were used to adhere the graft to the wound bed. Incisions were made with the 10 blade scalpel to allow fluid to drain. Vaseline was then applied to the wound before a xeroform bolster dressing secured with a pressure dressing. A sterile dressing was applied and full wound care instructions were given to the patient including handouts and emergency contact information. The patient left the room in good condition and was instructed to follow up in 1 week. STSG Size: 14cm x 16 cm total with two smaller grafts utilized and approximated to one another with 4-0 prolene. DESCRIPTION OF PROCEDURE: . CLIVE AREVALO MD Jun 07, 2020 13:57
[2020-06-07] MEDS ORDERED: fentaNYL 100 MCG/2 ML INJECTION (J3010) IV PRN (14:30)
[2020-06-07] MEDS ORDERED: ONDANSETRON 4MG/2ML VIAL IV PRN (14:30)
[2020-06-07] MEDS ORDERED: oxyCODONE 5MG TAB PO PRN (14:30)
[2020-06-07] MEDS ORDERED: LR 1,000 ML IV SCH (14:30)
[2020-06-07] MEDS ORDERED: ACETAMINOPHEN 500 MG TAB PO PRN (17:00)
[2020-06-07] MEDS ORDERED: PILL CUTTER 1 EACH XX PRN (17:15)
[2020-06-07] MEDS: CIPROFLOXACIN 500MG TABLET PO SCH (17:43)
[2020-06-07] MEDS ORDERED: LORazepam 1 MG TAB PO PRN (19:00)
[2020-06-07] MEDS: GABAPENTIN 100 MG CAP PO SCH (20:42)
[2020-06-07] MEDS ORDERED: LISINOPRIL *2.5 MG* TAB PO SCH (21:00)
[2020-06-08] MEDS ORDERED: UNRESOLVED CLARIFICATION ENTRY XX SCH (00:01)
[2020-06-08 02:00] VITALS: BP 112/56
[2020-06-08] MEDS: CIPROFLOXACIN 500MG TABLET PO SCH ×2 (05:45→17:32)
[2020-06-08 06:00] VITALS: BP 122/64
[2020-06-08] MEDS ORDERED: DULoxetine 20 MG CAP (CYMBALTA) PO SCH (09:00)
[2020-06-08] MEDS ORDERED: FUROSEMIDE 20 MG TAB PO SCH (09:00)
[2020-06-08] MEDS ORDERED: POTASSIUM CHLORIDE 10 MEQ SR TABLET PO SCH (09:00)
[2020-06-08] MEDS ORDERED: ASPIRIN 81 MG CHEW TABLET PO SCH (09:00)
[2020-06-08] MEDS ORDERED: METOPROLOL SUCC *XL* 12.5MG PER 1/2 TAB (TopROL *XL*) PO SCH (09:00)
[2020-06-08] MEDS: GABAPENTIN 100 MG CAP PO SCH (09:28)
[2020-06-08 09:29] VITALS: BP 122/64
[2020-06-08 10:00] VITALS: BP 104/50
[2020-06-08] MEDS ORDERED: metFORMIN (GLUCOPHAGE) 500 MG TAB PO SCH (18:00)
[2020-06-18] MEDS ORDERED: CIPR-249 PO (10:36)
== END 2020-06-08 18:53 | disposition home or self-care (01) ==
LOC: M SDC 08:51 → M MSPAV 17:35 → M SDC 06-08 18:53
PROVIDERS: ATTEND Dermatology
DX: C44.622 Squamous cell carcinoma of skin of right upper limb, including shoulder (principal); I10 Essential (primary) hypertension; E11.9 Type 2 diabetes mellitus without complications; F32.9 Major depressive disorder, single episode, unspecified; F41.9 Anxiety disorder, unspecified; K21.9 Gastro-esophageal reflux disease without esophagitis; R32 Unspecified urinary incontinence; Z78.0 Asymptomatic menopausal state; Z79.84 Long term (current) use of oral hypoglycemic drugs; Z79.899 Other long term (current) drug therapy; Z86.2 Personal history of diseases of the blood and blood-forming organs and certain disorders involving the immune mechanism; Z88.0 Allergy status to penicillin; Z90.710 Acquired absence of both cervix and uterus; Z96.642 Presence of left artificial hip joint; Z96.652 Presence of left artificial knee joint
CPT/HCPCS: 15100; 15101; 88305; G0378; J0131; J0744; J1100; J2250; J2370; J2405; J3010

== ENCOUNTER → 2020-06-16 | Outpatient (REF) | payer MEDICARE ==
[~2020-06-16] MED LIST changes: +CIPR-249 PO; -CIPROFLOXACIN 400 MG in IV 1 EA IV ONE; -LR 1,000 ML IV ONE
== END ==
LOC: M LAB REF 17:22
PROVIDERS: ATTEND Dermatology
DX: T14.90XD Injury, unspecified, subsequent encounter (principal); Y92.9 Unspecified place or not applicable
CPT/HCPCS: 87070; 87077; 87186; G0463

== ENCOUNTER → 2020-06-18 | Outpatient (CLI) | payer MEDICARE ==
--- NOTE | 2020-06-18 13:07 | RADONC.CN ---
Radiation Oncology Hx/Consult Radiation Oncology Consult Date of Service: Jun 18, 2020 Pt Identifier Yael Padron is a 80 year old female with a recent diagnosis of a rapidly developing 11 x 13 cm SCC of the skin of the right posterior arm s/p WLE and skin grafting with Dr. Coto on 06/07/20. She is seen for consideration of adjuvant RT. Diagnosis/Treatment History Oncologic History Patient has a history of casual sun exposure throughout life. No significant sun rubalcava. No chronic immunosuppression. Was a casual smoker for 3 months in her teens. Late February 2020 she noted development of a lesion on the posterior upper right arm, which grew steadily at first and prompted her to seek dermatoligic attention. At the time of her visit with Dr. Coto the lesion was ~8cm. At the time of the WLE on 06/07/20 the lesion was noted to be 11 x 13 cm. The pathologic specimen had clear margins, but the deep margin was within 0.2 cm, and there was invasion of the subcutaneous fat. She had her jaspreet removed 06/18/20. Interval History Patient feels well overall. She has no pain in the arm or swelling. Her right thigh donor site is uncomfortable but not overly painful. She has been taking cipro. She recounts that the lesion was rapid growing, never bleeding, or painful, but was superficially ulcerated. She also reports that she has poor dentition and is concerned about a mucosal lesion adjacent to an upper molar on the right. Past Medical History: DMII HPL HTN Osteoarthritis Spinal stenosis Past Surgical History: She had a left total knee replacement in 2011. Lumbosacral spine surgery in 2009. Left total hip replacement in 2002. She is status post left knee arthroscopic surgery in the past. Status post heel spur excision in the past. Appendectomy as well as hysterectomy. Benign breast biopsy. Dilatation and curettage times three Family History: Maternal relative with breast cancer Social History: Smoked casually for 3 months as a teenager Does not drink Allergies / Meds Allergies: Coded Allergies: Penicillins (Verified Allergy, Unknown, ALLERGY A CHILD, UNKOWN REACTION, 11/16/18) Home Meds Reported Medications Ciprofloxacin HCl (Cipro) 500 Mg Tablet, 500 MG PO BID for 10 Days, #20 TAB 06/18/20 Aspirin (Ecotrin) 81 Mg Tablet., 81 MG PO DAILY, TAB 05/31/20 Cholecalciferol (Vitamin D3) (Vitamin D3) 1,000 Unit Tablet, 1000 UNITS PO DAILY, TAB 05/31/20 Chlordiazepoxide (Chlordiazepoxide HCl) 5 Mg Capsule, 5 MG PO DAILY, CAP 11/16/18 Potassium Chloride (Potassium Chloride) 10 Meq Tab.er.prt, 10 MEQ PO DAILY, TAB 11/16/18 Metoprolol Succinate (Metoprolol Succinate) 25 Mg Tab.er.24h, 12.5 MG PO DAILY, TAB 11/16/18 Metformin HCl (Metformin HCl) 500 Mg Tablet, 250 MG PO BID, TAB 11/16/18 Lisinopril (Lisinopril) 2.5 Mg Tablet, 2.5 MG PO QPM, TAB 11/16/18 Glucosamine/D3/Boswellia Renita (Osteo Bi-Flex Tablet) 1 Each Tablet, 1 EACH PO DAILY, TAB 11/16/18 Gabapentin (Gabapentin) 100 Mg Capsule, 100 MG PO BID, CAP TAKES AT 1500/2300 11/16/18 Furosemide (Furosemide) 20 Mg Tablet, 20 MG PO QAM, TAB 11/16/18 Chlordiazepoxide (Chlordiazepoxide HCl) 5 Mg Capsule, 5 MG PO BID PRN for ANXIETY, CAP 11/16/18 Discontinued Reported Medications Mirabegron (Myrbetriq) 25 Mg Tab.er.24h, 25 MG PO QHS 11/16/18 Multivit-Min/FA/Lycopen/Lutein (Centrum Silver Tablet) 1 Each Tablet, 1 TAB PO DAILY, TAB 11/16/18 Duloxetine Hcl (Duloxetine HCl) 20 Mg Capsule.dr, 20 MG PO DAILY, CAP 11/16/18 Calcium Carbonate/Vitamin D3 (Calcium 600-Vit D3 400 Tablet) 1 Each Tablet, 1 TAB PO DAILY, TAB 11/16/18 Review of Systems Constitutional: Denies: Chills, Fever, Night Sweats Eyes: Denies: Pain, Vision change HEENT: Reports: Other Symptoms (Dental pain); Denies: Head Aches, Dysphagia, Sore Throat Skin: Denies: Rash, Bruising Pulmonary: Denies: Dyspnea, Cough Cardiovascular: Denies: Chest Pain, Palpitations, Edema Gastrointestinal: Denies: Nausea, Vomiting, Abdominal Pain, Diarrhea Genitourinary: Denies: Dysuria, Frequency, Incontinence Hematologic: Denies: Bruising, Petecchia, Enlarged Lymph Nodes Musculoskeletal: Reports: Neck pain, Back pain, Leg pain, Joint pain Neurological: Denies: Weakness, Numbness, Incoordination Psych: Reports: Mood Normal; Denies: Memory Issues, Thoughts of Self Harm Vital Signs Ht 61" Wt 227 BMI 42 T 97.7 P 88 RR 18 BP 111/68 O2 97% General Exam: Positive: Alert, Cooperative, No Acute Distress Eye Exam: Positive: PERRLA, EOMI ENT EXAM: Positive: Mucous membr. moist/pink, Pharynx Normal, Other ENT (There is pale mucosa medial to # 14, no ulceration, raised lesion. #14 has a broken filling and active decay. The remainder of the oral mucosal surfaces and remaining dentition is WNL.) Neck Exam: Negative: Thyromegaly, Lymphadenopathy Chest Exam: Positive: Normal air movement; Negative: Rales, Rhonchi, Wheezing Heart Exam: Positive: Rate Normal, Regular Rhythm Abdomen Exam: Positive: Soft; Negative: Tenderness, Mass Extremity Exam: Positive: Edema Neuro Exam: Positive: Normal Gait, Normal Speech, Cranial Nerves 3-12 NL Psych Exam: Positive: Mental status NL, Mood NL, Memory Intact Other Physical Findings On the posterior right arm there is a 15x15 cm surgical defect with overlying skin graft. There is whitish exudate v skin at the margins from 12-3 o'clock and 7-10 o'clock. At 6 o'clock there is a ~0.7 cm raised area without ulceration. The grafted skin is pink. The dressing was streaked with scant dried blood and white/yellow exudate. The right anterior thigh donor site dressing was left in place. In the right axilla there are several [id number] mobile lymph nodes one of which is firm. There are no palpable nodes in the right infraclavicular or supraclavicular fossae, nor are there any palpable cervical nodes. Diagnostic and Laboratory Diagnostic Review Radiologic images, relevant labs and pathology reports were personally reviewed and discussed with Ms. Padron. Assessment and Plan Impression Ms. Padron is a 80 year old female with a recent diagnosis of a rapidly develop ing 11 x 13 cm SCC of the skin of the right posterior arm s/p WLE and skin grafting with Dr. Coto on 06/07/20. She is seen for consideration of adjuvant RT. Stage No formal staging system per AJCC 8th If staging by the cutaneous H&N NMSC system the lesion would be [id number] stage III Performance Status ECOG 2 Plan We had an extensive discussion with Ms. Padron regarding the diagnosis at hand and available therapeutic options. She has a high risk lesion due to the close margin, fat invasion, size and rapid development. I have ordered an US of the right axilla and neck to assess the regional lymphatics given my exam findings today. I spoke with Dr. Coto today and he is suspicious that there is already early recurrence at the 6 o'clock position of the graft margin. Overall though he thinks the graft is healing well and that it would be appropriate to start RT soon. I recommend treatment with electrons, due to the size of the field I cannot hypofractionate significantly, as this would pose risk to the health of the graft and her surrounding healthy skin, but in the interest of being aggressive I will give 66 Gy in 30 fractions (2.2 Gy per fraction). I think this is a reasonable balance. We discussed the logistics of receiving radiation therapy in detail including the need for a 1-time planning session. This can occur early in the week of 06/21/20 as her jaspreet have been removed today. Treatment can then start on 06/28/20. After discussing the risks, benefits and alternatives to radiation therapy, Ms. Padron was amenable to pursuing radiotherapy. All questions were answered to the patient's satisfaction. We instructed the patient that if there were any questions,concerns or changes i n clinical status in the interim to contact us. Recommendations Adjuvant RT 66 Gy in 30 fractions with electrons and 0.5 cm bolus Simulation week of 06/21/20 Treatment to start 06/28/20 Right axilla/neck US to assess regional lymphatics ROSALINE BAY MD Jun 18, 2020 12:53
== END ==
LOC: M ONCR 10:07
PROVIDERS: ATTEND General Practice
DX: C44.622 Squamous cell carcinoma of skin of right upper limb, including shoulder (principal)
CPT/HCPCS: G0463 ×2

== ENCOUNTER → 2020-06-22 | Outpatient (REF) | payer MEDICARE | LOC: M LAB REF 17:25 | PROVIDERS: ATTEND Dermatology | DX: C44.622 Squamous cell carcinoma of skin of right upper limb, including shoulder (principal); L90.5 Scar conditions and fibrosis of skin ==

== ENCOUNTER → 2020-07-15 | Outpatient (RCR) | payer MEDICARE | LOC: M ONCR 06-22 12:11 | PROVIDERS: ATTEND General Practice | DX: C44.622 Squamous cell carcinoma of skin of right upper limb, including shoulder (principal) ==

== ENCOUNTER 2020-08-13 11:08 | Outpatient (RCR) | payer MEDICARE ==
--- NOTE | 2020-08-03 11:32 | RADENCPD ---
Date/Time of Encounter Date of Encounter: Aug 03, 2020 Time of Encounter: 11:29 Encounter Saw Yael before treatment today as she called to say she had fallen at home while transferring to the toilet. She hit her left side on the floor. No head trauma or LOC. She only complains of mild pleuritic CP and left chest wall tenderness. Took tylenol for this which was effective. No SOB. She does have 24 hour support at home and a power lift chair. She and her feel she is safe at home and that she falls infrequently. I asked her to take care at home and if falls become more frequent to alert me or any of her other physicians as she may be eligible for additional in home care services. Will continue RT to right arm. ROSALINE BAY MD Aug 03, 2020 11:32
[~2020-08-13 11:08] MED LIST changes: +LIDO2.5C15 TOP
== END 2020-08-15 ==
LOC: M ONCR 11:08
PROVIDERS: ATTEND General Practice
DX: C44.622 Squamous cell carcinoma of skin of right upper limb, including shoulder (principal)

== ENCOUNTER 2020-08-17 11:23 | Outpatient (RCR) | payer MEDICARE | END 2020-09-12 | LOC: M ONCR 11:23 | PROVIDERS: ATTEND General Practice | DX: C44.622 Squamous cell carcinoma of skin of right upper limb, including shoulder (principal) ==

== ENCOUNTER → 2020-09-15 | Outpatient (CLI) | payer MEDICARE ==
--- NOTE | 2020-09-15 11:52 | RADENCPD ---
Date/Time of Encounter Date of Encounter: Sep 15, 2020 Time of Encounter: 11:43 Encounter Yael is here for a 1 month post-radiation skin check. She completed adjuvant RT to the right posterior arm 66 Gy in 30 fractions on 08/17/20. She reports she is feeling well overall with some moderate fatigue remaining post treatment. She has noted some ongoing desquamation at the treatment site, associated with friction which she attempts to minimize but in some positions, especially when she is in her recliner for sleep, she is unable to avoid pressure on the site. Her has been applying Aquaphor diligently and a ABD pad when she is in her chair. On exam the right shoulder/arm graft site is intact. There is no nodularity at the margin of the graft to suggest recurrence. There is ongoing CTCAE grade 2 skin reaction, overall redness over the treatment field persisting. There are 2 patches of moist desquamation peripheral to the graft at 9:30 and 3:00. There are mildly tender without bleeding noted. There are small islands of active re- epithelialization present at other positions over resolving desquamation. Assessment: Resolving radiation dermatitis. No evidence for recurrence at this time. Plan: I will see her in 5 months time as previously scheduled. I asked that she see Dr. Coto for his evaluation of the site in the next 1-2 months as radiation dermatitis resolves. She can continue to dress the area PRN and apply Aquaphor until there is complete re-epithelialization and resolution of peeling. I remain available to her at any time if there are questions or other needs. ROSALINE BAY MD Sep 15, 2020 11:52
== END ==
LOC: M ONCR 10:31
PROVIDERS: ATTEND General Practice
DX: C44.622 Squamous cell carcinoma of skin of right upper limb, including shoulder (principal)

== ENCOUNTER → 2021-03-23 | Outpatient (CLI) | payer MEDICARE ==
[~2021-03-23] MED LIST changes: +LIDO1CRE42 TOP; -LIDO2.5C15 TOP; -LISI2.5T2 PO; +LISI2.5T9 PO
--- NOTE | 2021-03-23 11:57 | RADONC ---
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 Coto on 06/07/20. She received adjuvant RT to this lesion 66 Gy in 30 fractions from 07/05/20-08/17/20. She is seen today for follow up. Diagnosis/Treatment History Oncologic History Patient has a history of casual sun exposure throughout life. No significant sun rubalcava. No chronic immunosuppression. Was a casual smoker for 3 months in her teens. Late February 2020 she noted development of a lesion on the posterior upper right arm, which grew steadily at first and prompted her to seek dermatoligic attention. At the time of her visit with Dr. Coto the lesion was ~8cm. At the time of the WLE on 06/07/20 the lesion was noted to be 11 x 13 cm. The pathologic specimen had clear margins, but the deep margin was within 0.2 cm, and there was invasion of the subcutaneous fat. She had her jaspreet removed 06/18/20 07/05/20-08/17/20 Adjuvant RT 66 Gy in 30 fractions with electrons and bolus Interval History Patient feels well today, however she is increasingly immobile in her home. This is due to longstanding PVD and arthritis. She has limited ability to walk with a walker. She is hesitant for home services referral or OT referral. She has no complaints related to the treatment area. She does have diffuse dry skin. Says she is hesitant to drink to much fluid because getting to the bathroom is difficult. She has her supportive at home for help. Current Therapy Surveillance Stage No formal AJCC staging for [place] skin cancer of the body Social History: Smoked casually for 3 months as a teenager Does not drink Allergies / Meds Allergies: Coded Allergies: Penicillins (Verified Allergy, Unknown, ALLERGY A CHILD, UNKOWN REACTION, 11/16/18) Home Meds Reported Medications Aspirin (Ecotrin) 81 Mg Tablet., 81 MG PO DAILY, TAB 05/31/20 Cholecalciferol (Vitamin D3) (Vitamin D3) 1,000 Unit Tablet, 1000 UNITS PO DAILY, TAB 05/31/20 Chlordiazepoxide (Chlordiazepoxide HCl) 5 Mg Capsule, 5 MG PO DAILY, CAP 11/16/18 Potassium Chloride (Potassium Chloride) 10 Meq Tab.er.prt, 10 MEQ PO DAILY, TAB 11/16/18 Metoprolol Succinate (Metoprolol Succinate) 25 Mg Tab.er.24h, 12.5 MG PO DAILY, TAB 11/16/18 Metformin HCl (Metformin HCl) 500 Mg Tablet, 250 MG PO BID, TAB 11/16/18 Lisinopril (Lisinopril) 2.5 Mg Tablet, 2.5 MG PO QPM, TAB 11/16/18 Glucosamine/D3/Boswellia Renita (Osteo Bi-Flex Tablet) 1 Each Tablet, 1 EACH PO DAILY, TAB 11/16/18 Gabapentin (Gabapentin) 100 Mg Capsule, 100 MG PO BID, CAP TAKES AT 1500/2300 11/16/18 Furosemide (Furosemide) 20 Mg Tablet, 20 MG PO QAM, TAB 11/16/18 Chlordiazepoxide (Chlordiazepoxide HCl) 5 Mg Capsule, 5 MG PO BID PRN for ANXIETY, CAP 11/16/18 Discontinued Reported Medications Ciprofloxacin HCl (Cipro) 500 Mg Tablet, 500 MG PO BID for 10 Days, #20 TAB 06/18/20 Discontinued Scripts Lidocaine/Prilocaine (Lidocaine-Prilocaine Cream) 2.5%/2.5% Cream..g., 1 APLCT TOP ASDIRECTED, #30 GRAM 2 Refills Apply a small amount to the skin overlying radiation treatment site twice daily as needed for pain. Prov:ROSALINE BAY MD 08/09/20 Review of Systems Review of Systems Constitutional: Reports: Fatigue; Denies: Weight Loss Eyes: Denies: Pain HEENT: Denies: Head Aches Skin: Reports: Other (Dry skin); Denies: Rash, Lesions Pulmonary: Denies: Cough Cardiovascular: Denies: Chest Pain Gastrointestinal: Denies: Abdominal Pain Hematologic: Denies: Bruising, Bleeding Excessively Musculoskeletal: Reports: Leg pain; Denies: Neck pain, Back pain Neurological: Reports: Weakness, Incoordination Psych: Reports: Mood Normal Physical Examination Vital Signs T 98 P 90 RR 18 BP 106/61 O2 95% Pain 0 Fatigue 5 General Exam: Alert, Cooperative, No Acute Distress Eye Exam: PERRLA, EOMI ENT EXAM: Atraumatic Neck Exam: Supple Skin Exam: Nl turgor and temperature, Pruritus (Dry skin diffusely. ), Other skin issue (In the right posterior shoulder treatment field the skin is supple and dry, graft intact, no induration or ulceration. No lesions present. No satelitosis in the periphery. There is a halo of telangiectasias around the graft, no significant atrophy in this marginal skin) Psych Exam: Mental status NL Diagnostic and Laboratory Diagnostic Review Radiologic images, relevant labs and pathology reports were personally reviewed and discussed with Ms. Padron. Assessment and Plan Impression Assessment Ms. 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 Coto on 06/07/20. She received adjuvant RT to this lesion 66 Gy in 30 fractions from 07/05/20-08/17/20. She is seen today for follow up. She has healed completely from adjuvant RT, the irradiated skin appears healthy and supple, and without evidence of recurrent cancer. There are CTCAE grade 1 telangiectasias present around the graft site corresponding to field margins. I explained these are benign radiation related sequelae. She is happy with the outcome. She has dry skin, per reports uses dial bar soap. Suggested she change to Dove or like with some moisturizers applied after bathing. She could also increase fluid intake. With respect to her decreased mobility, I suggested OT evaluation either in- office or at home. She politely declines at this time. I will see her again in 6 months, if well at that time we can move to annual follow up or PRN. Performance Status ECOG 3 Plan 6 months follow up Ms. Padron was encouraged to call with questions or concerns in the interim period. Billing Statement Total time of [22] minutes was spent preparing for the visit [1], obtaining HPI [6], examining the patient [3], reviewing diagnostic tests [0], discussing management options [5], coordinating care [0], and writing this note [7]. ROSALINE BAY MD Mar 23, 2021 11:57
== END ==
LOC: M ONCR 09:35
PROVIDERS: ATTEND General Practice
DX: C44.622 Squamous cell carcinoma of skin of right upper limb, including shoulder (principal); I73.9 Peripheral vascular disease, unspecified; Z88.0 Allergy status to penicillin; Z92.3 Personal history of irradiation; Z99.89 Dependence on other enabling machines and devices

== ENCOUNTER → 2021-08-31 | Outpatient (CLI) | payer MEDICARE | LOC: M ONCR 09:01 | PROVIDERS: ATTEND General Practice | DX: C44.622 Squamous cell carcinoma of skin of right upper limb, including shoulder (principal); I78.8 Other diseases of capillaries; Z79.4 Long term (current) use of insulin; Z79.82 Long term (current) use of aspirin; Z79.899 Other long term (current) drug therapy; Z92.3 Personal history of irradiation ==

== ENCOUNTER → 2021-09-29 | Outpatient (REF) | payer MEDICARE ==
[~2021-09-29] MED LIST changes: +CHLO5CAP PO; -CHLOR5CA PO; -D31000TA2 PO; +VITA100093 PO
== END ==
LOC: M SFHCDERM 17:14
PROVIDERS: ATTEND Dermatology
DX: D48.9 Neoplasm of uncertain behavior, unspecified (principal)

== ENCOUNTER → 2022-02-25 | Outpatient (REF) | payer MEDICARE ==
[~2022-02-25] MED LIST changes: +POTA-150 PO; -POTA10TA17 PO
[2022-02-25 10:13] LABS: BASO # 0.1 10^3/uL (0.0-0.2); BASO % 0.9 % (0.0-1.0); EOS # 0.6 10^3/uL (0.0-0.5); EOS % 6.9 % (0.0-3.0); HEMATOCRIT 42.3 % (36.0-47.0); HEMOGLOBIN 13.7 g/dl (12.0-15.5); LYMPH # 1.2 10^3/uL (1.5-5.0); LYMPH % 14.4 % (24.0-44.0); MEAN CORPUSCULAR HEMOGLOBIN 32.5 pg (27.0-33.0); MEAN CORPUSCULAR HGB CONC 32.4 g/dl (32.0-36.5); MEAN CORPUSCULAR VOLUME 100.2 fl (80.0-96.0); MONO # 0.7 10^3/uL (0.0-0.8); MONO % 8.4 % (2.0-8.0); NEUTROPHILS # 5.7 10^3/uL (1.5-8.5); PLATELET COUNT, AUTOMATED 200 10^3/uL (150-450); RED BLOOD COUNT 4.22 10^6/uL (4.00-5.40); WHITE BLOOD COUNT 8.2 10^3/uL (4.0-10.0)
[2022-02-25 10:37] LABS: HEMOGLOBIN A1c 8.3 %
[2022-02-25 10:43] LABS: ALBUMIN 3.4 GM/DL (3.2-5.2); ALT/SGPT 41 U/L (12-78); BILIRUBIN,TOTAL 0.6 MG/DL (0.2-1.0); BLOOD UREA NITROGEN 15 MG/DL (7-18); CALCIUM LEVEL 9.5 MG/DL (8.8-10.2); CARBON DIOXIDE LEVEL 27 MEQ/L (21-32); CHLORIDE LEVEL 102 MEQ/L (98-107); CHOLESTEROL LEVEL 242 MG/DL (<200); CHOLESTEROL RISK RATIO 5.627 (<5); CREATININE FOR GFR 0.81 MG/DL (0.55-1.30); GLOMERULAR FILTRATION RATE > 60.0 (>32); GLUCOSE, FASTING 171 MG/DL (70-100); HDL CHOLESTEROL 43 MG/DL (>40); LDL CHOLESTEROL 143 MG/DL (<100); MAGNESIUM LEVEL 1.8 MG/DL (1.8-2.4); NON-HDL-C 199 MG/DL; SODIUM LEVEL 136 MEQ/L (136-145); TRIGLYCERIDES LEVEL 282 MG/DL (<150)
== END ==
LOC: M LAB REF 08:45
PROVIDERS: ATTEND Family Medicine
DX: Z00.00 Encounter for general adult medical examination without abnormal findings (principal); E11.9 Type 2 diabetes mellitus without complications; E66.01 Morbid (severe) obesity due to excess calories; M48.00 Spinal stenosis, site unspecified; C80.1 Malignant (primary) neoplasm, unspecified; I12.9 Hypertensive chronic kidney disease with stage 1 through stage 4 chronic kidney disease, or unspecified chronic kidney disease; N18.2 Chronic kidney disease, stage 2 (mild)

== ENCOUNTER 2023-03-06 21:26 | Emergency (ER) | payer MEDICARE ==
[~2023-03-06] VITALS: Ht 160 cm; Wt 102.2 kg
[~2023-03-06 21:26] MED LIST changes: -LIDO1CRE42 TOP; +LIDO30CR18 TOP
[2023-03-06 21:52] LABS: BASO # 0.1 10^3/uL (0.0-0.2); BASO % 0.3 % (0.0-1.0); EOS % 0.3 % (0.0-3.0); HEMOGLOBIN 13.1 g/dl (12.0-15.5); LYMPH # 0.8 10^3/uL (1.5-5.0); LYMPH % 5.5 % (24.0-44.0); MEAN CORPUSCULAR HEMOGLOBIN 32.3 pg (27.0-33.0); MEAN CORPUSCULAR HGB CONC 33.6 g/dl (32.0-36.5); MEAN CORPUSCULAR VOLUME 96.3 fl (80.0-96.0); MONO # 1.3 10^3/uL (0.0-0.8); MONO % 8.6 % (2.0-8.0); NEUTROPHILS # 12.3 10^3/uL (1.5-8.5); PLATELET COUNT, AUTOMATED 184 10^3/uL (150-450); RED BLOOD COUNT 4.05 10^6/uL (4.00-5.40); WHITE BLOOD COUNT 14.5 10^3/uL (4.0-10.0)
[2023-03-06 22:07] LABS: INR 1.08; PROTHROMBIN TIME 13.7 SECONDS (12.5-14.5)
[2023-03-06 22:10] LABS: PARTIAL THROMBOPLASTIN TIME 25.5 SECONDS (24.8-34.2)
[2023-03-06 22:19] LABS: BLOOD UREA NITROGEN 18 MG/DL (9-23); CALCIUM LEVEL 9.2 MG/DL (8.3-10.6); CARBON DIOXIDE LEVEL 28 MMOL/L (20-31); CHLORIDE LEVEL 97 MMOL/L (98-107); CK-MB VALUE MASS < 1.0 NG/ML (<3.6); CREATININE FOR GFR 0.79 MG/DL (0.55-1.30); ETHYL ALCOHOL (ETHANOL) 0.004 % (0.000-0.010); GLOMERULAR FILTRATION RATE > 60.0 (>32); GLUCOSE, FASTING 200 MG/DL (74-106); MAGNESIUM LEVEL 1.7 MG/DL (1.8-2.4); SODIUM LEVEL 134 MMOL/L (136-145)
[2023-03-06 22:21] LABS: CPK CREATINE PHOSPHOKINASE 92 U/L (34-145); MB/CK RELATIVE INDEX 1.08 (< OR =4)
[2023-03-06 22:24] LABS: RSV AMPLIFICATION NEGATIVE (NEGATIVE)
[2023-03-06] MEDS: MORPHINE 2 MG/ML 1ML VIAL IV PRN (23:33)
[2023-03-07 00:43] LABS: AMORPHOUS SEDIMENT SMALL (NEGATIVE); APPEARANCE, URINE CLOUDY (CLEAR); BACTERIA, URINE AUTO 1+ (NEGATIVE); BILIRUBIN, URINE AUTO NEGATIVE (NEGATIVE); BLOOD, URINE BLOOD NEGATIVE (NEGATIVE); COLOR, URINE AMBER (YELLOW); GLUCOSE, URINE (UA) AUTO NEGATIVE (NEGATIVE); KETONE, URINE AUTO 1+ mg/dL (NEGATIVE); LEUKOCYTE ESTERASE, URINE AUTO NEGATIVE (NEGATIVE); MUCUS, URINE SMALL (NEGATIVE); NITRITE, URINE AUTO POSITIVE (NEGATIVE); PROTEIN, URINE AUTO NEGATIVE (NEGATIVE); RBC, URINE AUTO 0 /HPF (0-3); SPECIFIC GRAVITY URINE AUTO 1.017 (1.002-1.035); SQUAMOUS EPITHELIAL CELL UR AU 1 /HPF (0-6); WBC, URINE AUTO 4 /HPF (0-3)
[2023-03-07] MEDS ORDERED: cefTRIAXone SOD 2 GM in D5W MINI-BAG PLUS 50 ML IV ONE (01:00)
[2023-03-07 06:11] VITALS: BP 138/65; TEMP 98.8; O2SAT 95
[2023-03-07] MEDS: MORPHINE 2 MG/ML 1ML VIAL IV PRN (06:29)
== END 2023-03-07 06:30 | disposition short-term general hospital (02) ==
LOC: M ED 21:26 → EDBD 21:26 → M ED 03-07 06:30
DX: R55 Syncope and collapse (principal); S72.342A Displaced spiral fracture of shaft of left femur, initial encounter for closed fracture; M16.11 Unilateral primary osteoarthritis, right hip; E11.9 Type 2 diabetes mellitus without complications; I10 Essential (primary) hypertension; E78.5 Hyperlipidemia, unspecified; F32.A Depression, unspecified; Z88.0 Allergy status to penicillin; Z96.642 Presence of left artificial hip joint
CPT/HCPCS: 51702; 70450; 71045; 72125; 73502; 73564; 80048; 81001; 82077; 82550; 82553; 83605; 83735; 84443; 84484; 85025; 85610; 85730; 87040; 87486; 87581; 87631; 87633; 87798; 93005; 93041; 94760; 96374; 96375; 96376; 99291; J0696